=== PATIENT | female | born 1955 | race Caucasian/White ===

== ENCOUNTER 2018-07-24 16:29 | Inpatient (IN) ==
[2018-07-24] MEDS ORDERED: Insulin DETEMIR 100 UNIT/ML per UNIT SQ ONE (21:00)
[2018-07-24] MEDS ORDERED: NON-FORMULARY MEDICATION 1 EACH EACH (Insulin Glargine [Lantus] 30 UNIT) SQ SCH (21:00)
[2018-07-24] MEDS: Cefdinir 300 MG CAPSULE PO SCH (22:00)
[2018-07-24] MEDS: Lactulose Oral Soln 20 GM/30 ML UDC PO SCH (22:01)
[2018-07-24] MEDS: Doxycycline 100 MG CAPSULE PO SCH (22:01)
[2018-07-24] MEDS: *HR* LORazepam 1 MG TABLET PO SCH (22:01)
[2018-07-24] MEDS: Ibuprofen 800 MG TABLET PO PRN (22:09)
[2018-07-24] MEDS: Nystatin POWDER 30 GM BOTTLE TP SCH (22:09)
[2018-07-25 07:28] LABS: BUN/Creatinine Ratio 15 (6-26); Blood Urea Nitrogen 12 mg/dL (8-23); Calcium 8.1 mg/dL (8.6-10.3); Carbon Dioxide 24 mEq/L (23-29); Chloride 105 mEq/L (98-107); Glucose 88 mg/dL (70-105); Osmolality,Calculated 279 (280-300); Potassium 3.4 mEq/L (3.5-5.1); Sodium 135 mEq/L (136-145); eGFR For Non-African Americans > 60 (> 60)
[2018-07-25 07:35] LABS: Basophils # 0.1 K/mcL (0.0-0.2); Basophils % 0.8 %; Eosinophils # 0.5 K/mcL (0.0-0.6); Eosinophils % 4.3 %; Hemoglobin 10.4 g/dL (11.5-15.4); Immature Granulocytes % 0.6 % (0-4); Lymphocytes # 1.8 K/mcL (0.6-4.6); Lymphocytes % 16.6 %; Mean Corpuscular HGB Conc 32.5 g/dL (31.6-35.5); Mean Corpuscular Hemoglobin 31.4 pg (28.0-33.3); Mean Corpuscular Volume 96.7 fL (83.0-100.0); Mean Platelet Volume 9.6 fL (9.4-12.4); Monocytes # 1.2 K/mcL (0.0-1.3); Monocytes % 11.4 %; Platelet Count 184 K/mcL (140-400); Red Blood Count 3.31 M/mcL (3.82-4.97); Red Cell Distribution Width 19.9 % (11.5-14.5); Segmented Neutrophils % 66.3 %
[2018-07-25 07:45] LABS: INR 1.3; Prothrombin Time 14.3 Seconds (9.4-12.1)
[2018-07-25 07:47] LABS: Activated Partial Thrombo Time 29.6 Seconds (26.0-36.0)
[2018-07-25] MEDS: Doxycycline 100 MG CAPSULE PO SCH ×2 (09:37→20:10)
[2018-07-25] MEDS: *HR* LORazepam 1 MG TABLET PO SCH (09:37)
[2018-07-25] MEDS: Cefdinir 300 MG CAPSULE PO SCH ×2 (09:37→20:10)
[2018-07-25] MEDS: *HR* Glimepiride 2 MG TABLET PO SCH (09:38)
[2018-07-25] MEDS: ARIPiprazole 2 MG TABLET PO SCH (09:38)
[2018-07-25] MEDS: Nystatin POWDER 30 GM BOTTLE TP SCH ×2 (09:39→20:11)
[2018-07-25] MEDS: Lactulose Oral Soln 20 GM/30 ML UDC PO SCH (09:40)
[2018-07-25] MEDS: Fluticasone Propionate Nasal 50 MCG/SPRAY BOTTLE NS SCH (11:41)
[2018-07-25] MEDS: Ibuprofen 800 MG TABLET PO PRN ×2 (11:41→18:43)
--- NOTE | 2018-07-25 12:19 | Internal Med History&Physical ---
Date of Encounter: 07/25/18 Time of Encounter: 11:40 Assessment and Plan (1) Pyelonephritis Current visit: No Status: Acute Continue Omnicef through 08/14/2018. Add lactobacillus. (2) Diabetes Current visit: No Status: Chronic Continue Levemir and Amaryl. Accu-Cheks with SSI will be done. Qualifiers: Diabetes mellitus type: type 2 Diabetes mellitus salvage determiner insulin use: without fdc use Diabetes mellitus complication status: with unspecified complications Qualified Code(s): E11.8 - Type 2 diabetes mellitus with unspecified complications (3) Anxiety and depression Current visit: No Status: Chronic She appears overmedicated. Will change Ativan to prn. Continue Abilify and Cymbalta. (4) Cirrhosis Current visit: No Status: Chronic Cryptogenic. Ammonia level was normal at discharge. Attempt decrease lactulose and monitor for encephalopathy. Qualifiers: Hepatic cirrhosis type: unspecified hepatic cirrhosis Ascites presence: without ascites Qualified Code(s): K74.60 - Unspecified cirrhosis of liver (5) Hypertension Current visit: No Status: Chronic Continue Lopressor. Qualifiers: Hypertension type: essential hypertension Qualified Code(s): I10 - Essential (primary) hypertension Internal Medicine - H&P: HPI Chief complaint: UTI, cirrhosis Admitted From: Hospital to Hospital Transfer Plans for Post Hospital Care: Home History of present illness: Ms. Frank is a 63 year old female who was transferred to [facility] swing bed after July 11 stay at [facility] for emphysematous pyelitis and acute metabolic encephalopathy. Urine and blood cultures were positive for Klebsiella pneumonia e. She was seen by infectious disease, nephrology, GI, and urology. She was given IV antibiotics during her acute care stay and has been prescribed ongoing oral antibiotics for swing bed stay. She states she has had kidney stones in the past as well as kidney infections. She denies other disorders of her kidney or bladder. Past Med Surg Social Fam HX - Past Medical History Medical history: asthma, coronary artery disease, diabetes, fibromyalgia, hyperlipidemia, hypertension, kidney stones, other Psychiatric history: anxiety, depression - Past Surgical History Surgical History: appendectomy, cholecystectomy, hip replacement, hysterectomy, other Additional surgical history: LHC, tonsillectomy - Social History Smoking Status: Never smoker Smokeless Tobacco Status: No Alcohol use: none Drug use: none - Family History Mother Living Status: Hx Family Cancer: Yes (pancreatic ca) Internal Medicine - H&P: Meds Albuterol Sulfate [Ventolin Hfa] 1 - 2 puff IH Q4-6H PRN 10/10/16 [History] Fluticasone Propionate Nasal [Flonase] 50 mcg NS DAILY 10/10/16 [History] Ondansetron HCl [Zofran] 4 mg PO TID PRN 10/10/16 [History] ARIPiprazole [Abilify] 1 mg PO DAILY 07/11/18 [History] DULoxetine [Cymbalta] 20 mg PO DAILY 07/11/18 [History] Glimepiride [Amaryl] 4 mg PO QAM 07/11/18 [History] Ibuprofen [Ibu-200] 800 mg PO TID PRN 07/11/18 [History] Insulin Glargine [Lantus] 30 unit SQ HS 07/11/18 [History] Oxybutynin Chloride [Ditropan Xl] 30 mg PO HS 07/11/18 [History] Cefdinir [Omnicef] 300 mg PO BID #42 capsule 07/24/18 [Rx] Doxycycline 100 mg PO BID #12 capsule 07/24/18 [Rx] LORazepam [Ativan] 1 mg PO BID 7 Days #14 tablet 07/24/18 [Rx] Lactulose 20 gm PO TID udc 07/24/18 [Rx] Lidocaine Patch [Lidoderm 5% patch] 1 each TP Q24H adh..patch 07/24/18 [Rx] Metoprolol [Lopressor] 25 mg PO BID tablet 07/24/18 [Rx] Multivit/Ca/Min/Fe/FA [Thera M Plus] 1 tab PO DAILY tablet 07/24/18 [Rx] Nystatin POWDER [Nystop] 1 appl TP BID bottle 07/24/18 [Rx] Allergy/AdvReac Type Severity Reaction Status Date / Time acetaminophen [From Percocet] AdvReac Agitated Verified 07/11/18 19:23 hydrocodone AdvReac Agitated Verified 07/11/18 19:23 hydroxyzine [From Vistaril] AdvReac Agitated Verified 07/11/18 13:35 Oxycodone [From Percocet] AdvReac Agitated Verified 07/11/18 19:23 All Systems PM: A 10-system review of systems was performed and is negative for pertinent findings except as documented above in the HPI. Review of systems: Gen.: Her weight has increased from 89.2 kg on 10/12/2016 to 108.409 kg on admission now Cardiovascular: She has history of hypertension. She reports a heart cath at [facility] approximately 18 months ago without further intervention recommended. She denies heart failure DVT or pulmonary embolus Respiratory: She is a lifelong nonsmoker but states she has a diagnosis of asthma. She does not use home oxygen. GI: She has had cholecystectomy. She has had GI bleed in the past but does not recall details. She states had a colonoscopy approximately 20 years ago and had polypectomy. She has not had repeat colonoscopy. She was diagnosed with liver cirrhosis uncertain etiology approximate 2015. 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 She denies large distribution strokes or seizures. Endocrine: She was diagnosed with DM 2 approximately 2011. She has hyperlipidemia but denies thyroid disease Hematology/oncology: She denies internal malignancies. She had anemia during her recent [facility] stay. She also had transient thrombocytopenia which resolved. Psychiatric: She has anxiety and depression. She is uncertain if she has been told she has bipolar disorder. Musko skeletal: She has had ACL tear in her knee which causes pain on walking. She denies other bone joint or muscle disorders. - Constitutional Vitals: Temp Pulse Resp BP Pulse Ox 98.3 F 79 16 107/64 95 07/25/18 07:37 07/25/18 07:37 07/25/18 07:37 07/25/18 07:37 07/25/18 07:37 Exam: Gen.: She is well-developed obese female sitting in a chair at bedside who appears in no acute distress HEENT: Head is atraumatic and normocephalic. Eyes: EOMI. There is no scleral icterus. Mouth: Mucosa is moist. Neck: There is no thyromegaly or adenopathy noted. Heart: Regular without murmurs gallops or ectopics Lungs: No wheezes or crackles are heard. Abdomen: Soft and nontender. Exam is limited because she is in the seated position. Extremities: Her feet are warm to touch. She has 1-2+ edema in the dorsum the feet and lower anterior shins bilaterally. Dorsalis pedis and posterior tibial pulses are not palpable. Neurologic: Mental status: She is talkative and a fair to good historian. She is slow in her response times but generally answers questions appropriately. She stated her age was 64 but is really 63. Cranial nerves: Smile is symmetric. Forehead wrinkles bilaterally. Tongue protrudes midline. EOMI. Motor: There is no pronator drift. Cerebellar: Finger to nose is intact bilaterally. Skin: Warm and dry Internal Med - H&P Results - Labs CBC & Chem 7: 07/25/18 07:23 07/25/18 06:55 Labs: Short CBC 07/25/18 Range/Units 07:23 WBC 10.5 (4.3-11.1) K/mcL Hgb 10.4 L (11.5-15.4) g/dL Hct 32.0 L (35.3-44.9) % Plt Count 184 (140-400) K/mcL Neutrophils # 7.0 (1.6-8.9) K/mcL BMP 07/25/18 06:55 Sodium 135 L Potassium 3.4 L Chloride 105 Carbon Dioxide 24 BUN 12 Creatinine 0.79 Glucose 88 Calcium 8.1 L
[2018-07-25] MEDS: Multivit/Ca/Min/Fe/FA 1 TAB TABLET PO SCH (13:14)
[2018-07-25] MEDS: Lactobacillus 1 EACH CAP.SPRINK PO SCH (20:10)
[2018-07-25] MEDS: Insulin DETEMIR 100 UNIT/ML X5UNITS SQ SCH (20:18)
[2018-07-25] MEDS: *HR* LORazepam 0.5 MG TABLET PO PRN (22:27)
[2018-07-26] MEDS: Ibuprofen 800 MG TABLET PO PRN ×3 (01:15→23:34)
[2018-07-26] MEDS: Fluticasone Propionate Nasal 50 MCG/SPRAY BOTTLE NS SCH (09:19)
[2018-07-26] MEDS: Lactulose Oral Soln 20 GM/30 ML UDC PO SCH (09:21)
[2018-07-26] MEDS: Nystatin POWDER 30 GM BOTTLE TP SCH ×2 (09:21→20:13)
[2018-07-26] MEDS: Cefdinir 300 MG CAPSULE PO SCH ×2 (09:22→20:11)
[2018-07-26] MEDS: Doxycycline 100 MG CAPSULE PO SCH ×2 (09:23→20:11)
[2018-07-26] MEDS: ARIPiprazole 2 MG TABLET PO SCH (09:23)
[2018-07-26] MEDS: *HR* Glimepiride 2 MG TABLET PO SCH (09:23)
[2018-07-26] MEDS: Lactobacillus 1 EACH CAP.SPRINK PO SCH ×2 (09:23→20:11)
[2018-07-26 11:38] LABS: Folate > 22.3 ng/mL (3.0-16.0); Vitamin B12 > 1500 pg/mL (250-1100)
[2018-07-26] MEDS: Multivit/Ca/Min/Fe/FA 1 TAB TABLET PO SCH (11:58)
--- NOTE | 2018-07-26 14:33 | Internal Med Progress Note ---
Date of Encounter: 07/26/18 Time of Encounter: 14:20 - Assessment and plan (1) Pyelonephritis Current Visit: No Status: Acute Assessment and plan: July 26. Continue Omnicef and lactobacillus through 08/14/2018. (2) Diabetes Current Visit: No Status: Chronic Assessment and plan: July 26. Continue Levemir with Accu-Cheks and SSI. Amaryl was held due to borderline hypoglycemia. Qualifiers: Diabetes mellitus type: type 2 Diabetes mellitus ferry terminal agent insulin use: without ferry terminal agent use Diabetes mellitus complication status: with unspecified complications Qualified Code(s): E11.8 - Type 2 diabetes mellitus with u nspecified complications (3) Anxiety and depression Current Visit: No Status: Chronic Assessment and plan: July 26. She appears less overmedicated but is still confused. Continue Abilify and Cymbalta. (4) Cirrhosis Current Visit: No Status: Chronic Assessment and plan: July 26. Cryptogenic. Monitor ammonia level and clinical status. She reports significant diarrhea so lactulose will be held for now. Qualifiers: Hepatic cirrhosis type: unspecified hepatic cirrhosis Ascites presence: without ascites Qualified Code(s): K74.60 - Unspecified cirrhosis of liver (5) Hypertension Current Visit: No Status: Chronic Assessment and plan: July 26. Continue Lopressor Qualifiers: Hypertension type: essential hypertension Qualified Code(s): I10 - Essential (primary) hypertension (6) Confusion Current Visit: Yes Status: Acute Assessment and plan: July 26. Remain on reduced dose Ativan and monitor. She does not have altered consciousness (7) Hypokalemia Current Visit: No Status: Acute Assessment and plan: July 26. Continue potassium supplementation and recheck labs. - Subjective Interval history: July 26. She has no new complaints. She denies pain or dyspnea. - Constitutional Vitals: Temp Pulse Resp BP Pulse Ox 99.5 F 88 18 129/85 97 07/26/18 06:35 07/26/18 06:35 07/26/18 06:35 07/26/18 06:35 07/26/18 06:35 Exam: She is sitting in a chair at bedside resting comfortably. She is rambling in conversation and does not know her age or how long she has been at [facility]. She cannot identify the previous hospital where she received treatment. She does not know her medical diagnoses. Internal Medicine: Result - Labs CBC & Chem 7: 07/25/18 07:23 07/25/18 06:55 - ABG Interpretation ABG results: PT/INR, D-dimer PT 14.3 Seconds (9.4-12.1) H 07/25/18 07:23 Consult Discharge Plan - Plan Referrals: Sonny Figueroa, POULTRY HUSBANDMAN [Primary Care Provider] - 1 week
[2018-07-26] MEDS: *HR* LORazepam 0.5 MG TABLET PO PRN (16:30)
[2018-07-26] MEDS: Ondansetron ODT 4 MG TAB.RAPDIS PO PRN (18:49)
[2018-07-26] MEDS: Insulin DETEMIR 100 UNIT/ML X5UNITS SQ SCH (20:12)
[2018-07-27 06:47] LABS: Basophils # 0.1 K/mcL (0.0-0.2); Basophils % 0.4 %; Eosinophils # 0.4 K/mcL (0.0-0.6); Eosinophils % 2.6 %; Hematocrit 30.4 % (35.3-44.9); Hemoglobin 9.9 g/dL (11.5-15.4); Immature Granulocytes % 0.6 % (0-4); Lymphocytes # 1.4 K/mcL (0.6-4.6); Lymphocytes % 9.7 %; Mean Corpuscular HGB Conc 32.6 g/dL (31.6-35.5); Mean Corpuscular Hemoglobin 30.9 pg (28.0-33.3); Mean Platelet Volume 9.6 fL (9.4-12.4); Monocytes # 1.3 K/mcL (0.0-1.3); Monocytes % 9.1 %; Neutrophils # 11.2 K/mcL (1.6-8.9); Platelet Count 156 K/mcL (140-400); Red Cell Distribution Width 19.6 % (11.5-14.5); Segmented Neutrophils % 77.6 %
[2018-07-27 07:09] LABS: Alanine Aminotransferase 20 Units/L (7-52); Albumin 2.2 g/dL (3.5-5.7); Albumin/Globulin Ratio 0.6 (1.1-2.2); Alkaline Phosphatase 215 Units/L (34-104); Aspartate Amino Transferase 37 Units/L (13-39); BUN/Creatinine Ratio 14 (6-26); Bilirubin,Total 1.1 mg/dL (0.3-1.0); Blood Urea Nitrogen 13 mg/dL (8-23); Calcium 7.8 mg/dL (8.6-10.3); Carbon Dioxide 24 mEq/L (23-29); Chloride 107 mEq/L (98-107); Globulin 3.5 g/dL (2.4-3.5); Glucose 122 mg/dL (70-105); Osmolality,Calculated 289 (280-300); Potassium 3.4 mEq/L (3.5-5.1); Sodium 139 mEq/L (136-145); Total Protein 5.7 g/dL (6.4-8.9); eGFR For Non-African Americans > 60 (> 60)
[2018-07-27] MEDS: Ibuprofen 800 MG TABLET PO PRN (07:40)
[2018-07-27] MEDS: Cefdinir 300 MG CAPSULE PO SCH ×2 (07:41→20:43)
[2018-07-27] MEDS: *HR* Glimepiride 2 MG TABLET PO SCH (07:41)
[2018-07-27] MEDS: Doxycycline 100 MG CAPSULE PO SCH ×2 (07:42→20:42)
[2018-07-27] MEDS: *HR* LORazepam 0.5 MG TABLET PO PRN ×2 (07:42→23:55)
[2018-07-27] MEDS: Lactobacillus 1 EACH CAP.SPRINK PO SCH ×2 (07:42→20:42)
[2018-07-27] MEDS: Lactulose Oral Soln 20 GM/30 ML UDC PO SCH (07:42)
[2018-07-27] MEDS: ARIPiprazole 2 MG TABLET PO SCH (07:42)
[2018-07-27] MEDS: Fluticasone Propionate Nasal 50 MCG/SPRAY BOTTLE NS SCH (07:43)
[2018-07-27] MEDS: Nystatin POWDER 30 GM BOTTLE TP SCH ×2 (07:46→20:43)
[2018-07-27 10:04] LABS: Estimated Average Glucose 194 mg/dl; Hemoglobin A1C 8.4 %
--- NOTE | 2018-07-27 10:40 | Internal Med Progress Note ---
Date of Encounter: 07/27/18 Time of Encounter: 10:30 - Assessment and plan (1) Pyelonephritis Current Visit: No Status: Acute Assessment and plan: July 26. Continue Omnicef and lactobacillus through 08/14/2018. (2) Diabetes Current Visit: No Status: Chronic Assessment and plan: July 26. Continue Levemir with Accu-Cheks and SSI. Amaryl was held due to borderline hypoglycemia. July 27. Hemoglobin A1c returned slightly elevated at 8.4%. Continue Levemir, Amaryl, and Accu-Cheks with SSI. Qualifiers: Diabetes mellitus type: type 2 Diabetes mellitus detention insulin use: without detention use Diabetes mellitus complication status: with unspecified complications Qualified Code(s): E11.8 - Type 2 diabetes mellitus with unspecified complications (3) Anxiety and depression Current Visit: No Status: Chronic Assessment and plan: July 26. She appears less overmedicated but is still confused. Continue Abilify and Cymbalta. July 27. She does not appear sedated. Continue scheduled Abilify and C ymbalta and prn lorazepam. (4) Cirrhosis Current Visit: No Status: Chronic Assessment and plan: July 26. Cryptogenic. Monitor ammonia level and clinical status. She reports significant diarrhea so lactulose will be held for now. Qualifiers: Hepatic cirrhosis type: unspecified hepatic cirrhosis Ascites presence: without ascites Qualified Code(s): K74.60 - Unspecified cirrhosis of liver (5) Hypertension Current Visit: No Status: Chronic Assessment and plan: July 26. Continue Lopressor July 27. Blood pressure borderline low. Hold Lopressor and monitor. Qualifiers: Hypertension type: essential hypertension Qualified Code(s): I10 - Essential (primary) hypertension (6) Confusion Current Visit: Yes Status: Acute Assessment and plan: July 26. Remain on reduced dose Ativan and monitor. She does not have altered consciousness July 27. Improved. Ammonia level normal at 22. Continue present regimen. (7) Hypokalemia Current Visit: No Status: Acute Assessment and plan: July 26. Continue potassium supplementation and recheck labs. July 27. Potassium unchanged to 3.4. Increase potassium supplement. (8) Edema Current Visit: Yes Status: Acute Assessment and plan: July 27. BN peptide minimally abnormal at 104. Start low-dose Bumex and continue supplemental potassium. Qualifiers: Edema type: unspecified Qualified Code(s): R60.9 - Edema, unspecified - Subjective Interval history: July 26. She has no new complaints. She denies pain or dyspnea. July 27. She has no new complaints. She reports slight pain in her back occasionally. She denies dyspnea or cough. - Constitutional Vitals: Temp Pulse Resp BP Pulse Ox 97.9 F 90 18 88/58 96 07/27/18 07:27 07/27/18 07:27 07/27/18 07:27 07/27/18 07:27 07/27/18 07:27 Exam: She is resting comfortably in bed and appears in no acute distress. She is appropriate in conversation while answering simple questions. Extremities show 1+ edema bilaterally of lower legs. I reviewed her medications and lab results. Internal Medicine: Result - Labs CBC & Chem 7: 07/27/18 06:30 07/27/18 06:30 Labs: Short CBC 07/27/18 Range/Units 06:30 WBC 14.4 H (4.3-11.1) K/mcL Hgb 9.9 L (11.5-15.4) g/dL Hct 30.4 L (35.3-44.9) % Plt Count 156 (140-400) K/mcL Neutrophils # 11.2 H (1.6-8.9) K/mcL BMP 07/27/18 06:30 Sodium 139 Potassium 3.4 L Chloride 107 Carbon Dioxide 24 BUN 13 Creatinine 0.91 Glucose 122 H Calcium 7.8 L Liver Function 07/27/18 Range/Units 06:30 Total Bilirubin 1.1 H (0.3-1.0) mg/dL AST 37 (13-39) Units/L ALT 20 (7-52) Units/L Alkaline Phosphatase 215 H (34-104) Units/L Albumin 2.2 L (3.5-5.7) g/dL - ABG Interpretation ABG results: PT/INR, D-dimer PT 14.3 Seconds (9.4-12.1) H 07/25/18 07:23 Consult Discharge Plan - Plan Referrals: Sonny Figueroa, LAY OUT AND DETAIL DRAFTER [Primary Care Provider] - 1 week
[2018-07-27 11:05] LABS: Ferritin 119 ng/mL (10-120)
[2018-07-27] MEDS: Bumetanide 1 MG TABLET PO SCH (12:30)
[2018-07-27] MEDS: traMADol 50 MG TABLET PO PRN ×2 (12:31→23:55)
[2018-07-27] MEDS: Multivit/Ca/Min/Fe/FA 1 TAB TABLET PO SCH (12:35)
[2018-07-27] MEDS ORDERED: traMADol 50 MG TABLET PO ONE (16:09)
[2018-07-27] MEDS: Insulin DETEMIR 100 UNIT/ML X5UNITS SQ SCH (20:44)
[2018-07-28 03:42] LABS: Basophils # 0.1 K/mcL (0.0-0.2); Basophils % 0.7 %; Eosinophils # 0.5 K/mcL (0.0-0.6); Eosinophils % 4.3 %; Hematocrit 30.8 % (35.3-44.9); Hemoglobin 9.9 g/dL (11.5-15.4); Immature Granulocytes % 0.5 % (0-4); Lymphocytes # 1.9 K/mcL (0.6-4.6); Mean Corpuscular HGB Conc 32.1 g/dL (31.6-35.5); Mean Corpuscular Volume 96.6 fL (83.0-100.0); Mean Platelet Volume 9.6 fL (9.4-12.4); Monocytes # 1.4 K/mcL (0.0-1.3); Monocytes % 11.5 %; Neutrophils # 8.5 K/mcL (1.6-8.9); Platelet Count 160 K/mcL (140-400); Red Blood Count 3.19 M/mcL (3.82-4.97); Red Cell Distribution Width 19.7 % (11.5-14.5)
[2018-07-28 04:02] LABS: BUN/Creatinine Ratio 15 (6-26); Blood Urea Nitrogen 13 mg/dL (8-23); Carbon Dioxide 25 mEq/L (23-29); Chloride 103 mEq/L (98-107); Glucose 172 mg/dL (70-105); Magnesium 1.5 mg/dL (1.6-2.6); Osmolality,Calculated 286 (280-300); Phosphorous 3.3 mg/dL (2.7-4.5); Potassium 3.3 mEq/L (3.5-5.1); Sodium 136 mEq/L (136-145); eGFR For Non-African Americans > 60 (> 60)
[2018-07-28] MEDS: *HR* Glimepiride 2 MG TABLET PO SCH (08:35)
[2018-07-28] MEDS: traMADol 50 MG TABLET PO PRN (08:35)
[2018-07-28] MEDS: Bumetanide 1 MG TABLET PO SCH (08:35)
[2018-07-28] MEDS: Doxycycline 100 MG CAPSULE PO SCH ×2 (08:35→21:50)
[2018-07-28] MEDS: Lactobacillus 1 EACH CAP.SPRINK PO SCH ×2 (08:35→21:50)
[2018-07-28] MEDS: Fluticasone Propionate Nasal 50 MCG/SPRAY BOTTLE NS SCH (08:36)
[2018-07-28] MEDS: Lactulose Oral Soln 20 GM/30 ML UDC PO SCH ×2 (08:36→11:22)
[2018-07-28] MEDS: ARIPiprazole 2 MG TABLET PO SCH (08:36)
[2018-07-28] MEDS: Cefdinir 300 MG CAPSULE PO SCH ×2 (08:36→21:50)
[2018-07-28] MEDS: Nystatin POWDER 30 GM BOTTLE TP SCH ×2 (08:37→21:50)
[2018-07-28] MEDS: Multivit/Ca/Min/Fe/FA 1 TAB TABLET PO SCH (11:53)
[2018-07-28] MEDS ORDERED: traMADol 50 MG TABLET PO ONE (12:00)
[2018-07-28] MEDS ORDERED: traMADol 50 MG TABLET PO SCH (16:00)
[2018-07-28] MEDS: Insulin DETEMIR 100 UNIT/ML X5UNITS SQ SCH (21:50)
[2018-07-28] MEDS: *HR* LORazepam 0.5 MG TABLET PO PRN (21:59)
[2018-07-29] MEDS: traMADol 50 MG TABLET PO PRN ×3 (08:31→21:30)
[2018-07-29] MEDS: ARIPiprazole 2 MG TABLET PO SCH (09:14)
[2018-07-29] MEDS: Doxycycline 100 MG CAPSULE PO SCH ×2 (09:14→21:16)
[2018-07-29] MEDS: Bumetanide 1 MG TABLET PO SCH (09:15)
[2018-07-29] MEDS: Cefdinir 300 MG CAPSULE PO SCH ×2 (09:15→21:16)
[2018-07-29] MEDS: Lactobacillus 1 EACH CAP.SPRINK PO SCH ×2 (09:15→21:16)
[2018-07-29] MEDS: *HR* Glimepiride 2 MG TABLET PO SCH (09:16)
[2018-07-29] MEDS: Lactulose Oral Soln 20 GM/30 ML UDC PO SCH ×2 (09:16→09:19)
[2018-07-29] MEDS: Nystatin POWDER 30 GM BOTTLE TP SCH ×2 (09:19→19:45)
[2018-07-29] MEDS: Fluticasone Propionate Nasal 50 MCG/SPRAY BOTTLE NS SCH (09:19)
[2018-07-29] MEDS: *HR* LORazepam 0.5 MG TABLET PO PRN ×2 (09:47→17:14)
[2018-07-29] MEDS: Multivit/Ca/Min/Fe/FA 1 TAB TABLET PO SCH (11:41)
[2018-07-29] MEDS: Magnesium Oxide 400 MG TABLET PO SCH ×2 (13:26→21:16)
--- NOTE | 2018-07-29 14:48 | Internal Med Progress Note ---
Date of Encounter: 07/29/18 Time of Encounter: 14:40 - Assessment and plan (1) Pyelonephritis Current Visit: No Status: Acute Assessment and plan: July 26. Continue Omnicef and lactobacillus through 08/14/2018. (2) Diabetes Current Visit: No Status: Chronic Assessment and plan: July 26. Continue Levemir with Accu-Cheks and SSI. Amaryl was held due to borderline hypoglycemia. July 27. Hemoglobin A1c returned slightly elevated at 8.4%. Continue Levemir, Amaryl, and Accu-Cheks with SSI. July 29. She has experienced several episodes of hypoglycemia. Amaryl will be discontinued and Levemir dose reduced. Continue Accu-Cheks with SSI. Qualifiers: Diabetes mellitus type: type 2 Diabetes mellitus assistant terminal manager insulin use: without assistant terminal manager use Diabetes mellitus complication status: with unspecified complications Qualified Code(s): E11.8 - Type 2 diabetes mellitus with unspecified complications (3) Anxiety and depression Current Visit: No Status: Chronic Assessment and plan: July 26. She appears less overmedicated but is still confused. Continue Abilify and Cymbalta. July 27. She does not appear sedated. Continue scheduled Abilify and Cymbalta and prn lorazepam. (4) Cirrhosis Current Visit: No Status: Chronic Assessment and plan: July 26. Cryptogenic. Monitor ammonia level and clinical status. She reports significant diarrhea so lactulose will be held for now. October 29. She reports diarrhea has resolved off lactulose. Continue to monitor. Qualifiers: Hepatic cirrhosis type: unspecified hepatic cirrhosis Ascites presence: without ascites Qualified Code(s): K74.60 - Unspecified cirrhosis of liver (5) Hypertension Current Visit: No Status: Chronic Assessment and plan: July 26. Continue Lopressor July 27. Blood pressure borderline low. Hold Lopressor and monitor. Qualifiers: Hypertension type: essential hypertension Qualified Code(s): I10 - Essential (primary) hypertension (6) Confusion Current Visit: Yes Status: Acute Assessment and plan: July 26. Remain on reduced dose Ativan and monitor. She does not have altered consciousness July 27. Improved. Ammonia level normal at 22. Continue present regimen. (7) Hypokalemia Current Visit: No Status: Acute Assessment and plan: July 26. Continue potassium supplementation and recheck labs. July 27. Potassium unchanged to 3.4. Increase potassium supplement. July 29. Recheck labs in a.m. (8) Edema Current Visit: Yes Status: Acute Assessment and plan: July 27. BN peptide minimally abnormal at 104. Start low-dose Bumex and continue supplemental potassium. July 29. Continue Bumex. Recheck labs in a.m. Qualifiers: Edema type: unspecified Qualified Code(s): R60.9 - Edema, unspecified (9) Hypomagnesemia Current Visit: Yes Status: Acute Assessment and plan: July 29. She has been started on magnesium oxide. Recheck labs in a.m. - Subjective Interval history: July 26. She has no new complaints. She denies pain or dyspnea. July 27. She has no new complaints. She reports slight pain in her back occasionally. She denies dyspnea or cough. July 29. She has no new complaints and feels better. - Constitutional Vitals: Temp Pulse Resp BP Pulse Ox 98 F 107 71 107/60 98 07/29/18 06:00 07/29/18 09:46 07/29/18 06:00 07/29/18 09:46 07/29/18 09:12 Exam: She is resting comfortably in bed and appears in no acute distress. She is appropriate in conversation. Her affect is cheerful. I reviewed her medications and lab results. Internal Medicine: Result - Labs CBC & Chem 7: 07/28/18 03:20 07/28/18 03:20 - ABG Interpretation ABG results: PT/INR, D-dimer PT 14.3 Seconds (9.4-12.1) H 07/25/18 07:23 Consult Discharge Plan - Plan Referrals: Sonny Figueroa AIRPORT ELECTRICIAN [Primary Care Provider] - 1 week
[2018-07-29] MEDS ORDERED: Insulin DETEMIR 100 UNIT/ML X5UNITS SQ SCH (21:00)
[2018-07-30 06:28] LABS: Basophils # 0.1 K/mcL (0.0-0.2); Basophils % 0.9 %; Eosinophils # 0.7 K/mcL (0.0-0.6); Eosinophils % 7.3 %; Hematocrit 32.2 % (35.3-44.9); Hemoglobin 10.3 g/dL (11.5-15.4); Immature Granulocytes % 0.5 % (0-4); Lymphocytes % 21.6 %; Mean Corpuscular Hemoglobin 30.7 pg (28.0-33.3); Mean Corpuscular Volume 95.8 fL (83.0-100.0); Mean Platelet Volume 9.1 fL (9.4-12.4); Monocytes # 1.4 K/mcL (0.0-1.3); Monocytes % 14.7 %; Neutrophils # 5.1 K/mcL (1.6-8.9); Platelet Count 172 K/mcL (140-400); Red Blood Count 3.36 M/mcL (3.82-4.97); Red Cell Distribution Width 18.6 % (11.5-14.5)
[2018-07-30 06:46] LABS: BUN/Creatinine Ratio 11 (6-26); Blood Urea Nitrogen 9 mg/dL (8-23); Calcium 8.3 mg/dL (8.6-10.3); Carbon Dioxide 31 mEq/L (23-29); Chloride 100 mEq/L (98-107); Glucose 51 mg/dL (70-105); Magnesium 1.5 mg/dL (1.6-2.6); Osmolality,Calculated 280 (280-300); Potassium 3.9 mEq/L (3.5-5.1); Sodium 137 mEq/L (136-145); eGFR For Non-African Americans > 60 (> 60)
[2018-07-30] MEDS: traMADol 50 MG TABLET PO PRN ×3 (07:35→16:30)
[2018-07-30] MEDS: ARIPiprazole 2 MG TABLET PO SCH (08:00)
[2018-07-30] MEDS: Doxycycline 100 MG CAPSULE PO SCH ×2 (08:00→20:18)
[2018-07-30] MEDS: Lactobacillus 1 EACH CAP.SPRINK PO SCH ×2 (08:01→20:18)
[2018-07-30] MEDS: Magnesium Oxide 400 MG TABLET PO SCH ×2 (08:01→20:18)
[2018-07-30] MEDS: Bumetanide 1 MG TABLET PO SCH (08:01)
[2018-07-30] MEDS: Cefdinir 300 MG CAPSULE PO SCH ×2 (08:01→20:18)
[2018-07-30] MEDS: Nystatin POWDER 30 GM BOTTLE TP SCH ×2 (08:02→20:19)
[2018-07-30] MEDS: Fluticasone Propionate Nasal 50 MCG/SPRAY BOTTLE NS SCH (08:03)
[2018-07-30] MEDS: *HR* LORazepam 0.5 MG TABLET PO PRN ×2 (09:06→20:18)
[2018-07-30] MEDS: Multivit/Ca/Min/Fe/FA 1 TAB TABLET PO SCH (12:04)
[2018-07-30] MEDS: Ondansetron ODT 4 MG TAB.RAPDIS PO PRN (12:17)
[2018-07-30] MEDS: Insulin DETEMIR 100 UNIT/ML X5UNITS SQ SCH (20:19)
[2018-07-31] MEDS: traMADol 50 MG TABLET PO PRN ×4 (04:34→18:21)
[2018-07-31] MEDS: Fluticasone Propionate Nasal 50 MCG/SPRAY BOTTLE NS SCH (08:07)
[2018-07-31] MEDS: Bumetanide 1 MG TABLET PO SCH (08:08)
[2018-07-31] MEDS: Lactobacillus 1 EACH CAP.SPRINK PO SCH ×2 (08:08→20:44)
[2018-07-31] MEDS: ARIPiprazole 2 MG TABLET PO SCH (08:12)
[2018-07-31] MEDS: Magnesium Oxide 400 MG TABLET PO SCH ×2 (08:12→20:45)
[2018-07-31] MEDS: Doxycycline 100 MG CAPSULE PO SCH ×2 (08:12→20:44)
[2018-07-31] MEDS: Cefdinir 300 MG CAPSULE PO SCH ×2 (08:12→20:44)
[2018-07-31] MEDS: *HR* LORazepam 0.5 MG TABLET PO PRN ×2 (08:13→18:21)
[2018-07-31] MEDS: Nystatin POWDER 30 GM BOTTLE TP SCH ×2 (08:22→20:45)
[2018-07-31] MEDS: Multivit/Ca/Min/Fe/FA 1 TAB TABLET PO SCH (11:11)
[2018-07-31] MEDS: Insulin DETEMIR 100 UNIT/ML X5UNITS SQ SCH (21:16)
[2018-08-01] MEDS: traMADol 50 MG TABLET PO PRN ×3 (05:59→19:36)
[2018-08-01] MEDS: Bumetanide 1 MG TABLET PO SCH (08:29)
[2018-08-01] MEDS: Lactobacillus 1 EACH CAP.SPRINK PO SCH ×2 (08:30→19:36)
[2018-08-01] MEDS: ARIPiprazole 2 MG TABLET PO SCH (08:30)
[2018-08-01] MEDS: Magnesium Oxide 400 MG TABLET PO SCH ×2 (08:30→19:36)
[2018-08-01] MEDS: Doxycycline 100 MG CAPSULE PO SCH ×2 (08:30→19:36)
[2018-08-01] MEDS: Cefdinir 300 MG CAPSULE PO SCH ×2 (08:31→19:36)
[2018-08-01] MEDS: Fluticasone Propionate Nasal 50 MCG/SPRAY BOTTLE NS SCH (10:06)
[2018-08-01] MEDS: Nystatin POWDER 30 GM BOTTLE TP SCH ×2 (11:25→21:05)
[2018-08-01] MEDS: Multivit/Ca/Min/Fe/FA 1 TAB TABLET PO SCH (11:37)
--- NOTE | 2018-08-01 12:11 | Internal Med Progress Note ---
Date of Encounter: 08/01/18 Time of Encounter: 12:05 - Assessment and plan (1) Pyelonephritis Current Visit: No Status: Acute Assessment and plan: July 26. Continue Omnicef and lactobacillus through 08/14/2018. August 01. Continue present regimen. Anticipate discharge home tomorrow and complete oral antibiotic course as outpatient. (2) Diabetes Current Visit: No Status: Chronic Assessment and plan: July 26. Continue Levemir with Accu-Cheks and SSI. Amaryl was held due to borderline hypoglycemia. July 27. Hemoglobin A1c returned slightly elevated at 8.4%. Continue Levemir, Amaryl, and Accu-Cheks with SSI. July 29. She has experienced several episodes of hypoglycemia. Amaryl will be discontinued and Levemir dose reduced. Continue Accu-Cheks with SSI. August 01. Symptomatic hypoglycemia resolved with reduced dose Levemir. Qualifiers: Diabetes mellitus type: type 2 Diabetes mellitus watermelon inspector insulin use: without long-term use Diabetes mellitus complication status: with unspecified complications Qualified Code(s): E11.8 - Type 2 diabetes mellitus with unspecified complications (3) Anxiety and depression Current Visit: No Status: Chronic Assessment and plan: July 26. She appears less overmedicated but is still confused. Continue Abilify and Cymbalta. July 27. She does not appear sedated. Continue scheduled Abilify and Cymbalta and prn lorazepam. (4) Cirrhosis Current Visit: No Status: Chronic Assessment and plan: July 26. Cryptogenic. Monitor ammonia level and clinical status. She reports significant diarrhea so lactulose will be held for now. October 29. She reports diarrhea has resolved off lactulose. Continue to monitor. Qualifiers: Hepatic cirrhosis type: unspecified hepatic cirrhosis Ascites presence: without ascites Qualified Code(s): K74.60 - Unspecified cirrhosis of liver (5) Hypertension Current Visit: No Status: Chronic Assessment and plan: July 26. Continue Lopressor July 27. Blood pressure borderline low. Hold Lopressor and monitor. August 01. Blood pressure satisfactory off Lopressor. Qualifiers: Hypertension type: essential hypertension Qualified Code(s): I10 - Essential (primary) hypertension (6) Confusion Current Visit: Yes Status: Acute Assessment and plan: July 26. Remain on reduced dose Ativan and monitor. She does not have altered consciousness July 27. Improved. Ammonia level normal at 22. Continue present regimen. (7) Hypokalemia Current Visit: No Status: Acute Assessment and plan: July 26. Continue potassium supplementation and recheck labs. July 27. Potassium unchanged to 3.4. Increase potassium supplement. July 29. Recheck labs in a.m. August 01. Potassium normalized to 3.9 on July 30. Recheck in a.m. (8) Edema Current Visit: Yes Status: Acute Assessment and plan: July 27. BN peptide minimally abnormal at 104. Start low-dose Bumex and continue supplemental potassium. July 29. Continue Bumex. Recheck labs in a.m. Qualifiers: Edema type: unspecified Qualified Code(s): R60.9 - Edema, unspecified (9) Hypomagnesemia Current Visit: Yes Status: Acute Assessment and plan: July 29. She has been started on magnesium oxide. Recheck labs in a.m. August 01. Recheck labs in a.m. - Subjective Interval history: July 26. She has no new complaints. She denies pain or dyspnea. July 27. She has no new complaints. She reports slight pain in her back occasionally. She denies dyspnea or cough. July 29. She has no new complaints and feels better. August 01. She has no new complaints. - Constitutional Vitals: Temp Pulse Resp BP Pulse Ox 98.0 F 106 18 124/64 93 08/01/18 06:47 08/01/18 06:47 08/01/18 06:47 08/01/18 06:47 08/01/18 06:47 Exam: She is sitting in a chair at bedside resting comfortably. Her affect is bright and cheerful. I reviewed her medications and lab results. Internal Medicine: Result - Labs CBC & Chem 7: 07/30/18 06:20 07/30/18 06:20 - ABG Interpretation ABG results: PT/INR, D-dimer PT 14.3 Seconds (9.4-12.1) H 07/25/18 07:23 Consult Discharge Plan - Plan Referrals: Sonny Figueroa, SENIOR AUDITOR [Primary Care Provider] - 1 week
[2018-08-01] MEDS: Ondansetron ODT 4 MG TAB.RAPDIS PO PRN (19:36)
[2018-08-01] MEDS: *HR* LORazepam 0.5 MG TABLET PO PRN (19:37)
[2018-08-01] MEDS: Insulin DETEMIR 100 UNIT/ML X5UNITS SQ SCH (20:04)
[2018-08-02 07:19] VITALS: BP 109/64
[2018-08-02 08:18] LABS: Basophils # 0.1 K/mcL (0.0-0.2); Basophils % 0.7 %; Eosinophils # 0.8 K/mcL (0.0-0.6); Eosinophils % 5.9 %; Hematocrit 33.6 % (35.3-44.9); Hemoglobin 11.1 g/dL (11.5-15.4); Immature Granulocytes % 0.7 % (0-4); Lymphocytes # 2.4 K/mcL (0.6-4.6); Lymphocytes % 17.7 %; Mean Corpuscular Hemoglobin 31.4 pg (28.0-33.3); Mean Corpuscular Volume 94.9 fL (83.0-100.0); Mean Platelet Volume 10.2 fL (9.4-12.4); Monocytes # 1.6 K/mcL (0.0-1.3); Monocytes % 11.9 %; Platelet Count 120 K/mcL (140-400); Red Blood Count 3.54 M/mcL (3.82-4.97); Red Cell Distribution Width 17.9 % (11.5-14.5); Segmented Neutrophils % 63.1 %
[2018-08-02] MEDS: *HR* LORazepam 0.5 MG TABLET PO PRN (08:24)
[2018-08-02] MEDS: Bumetanide 1 MG TABLET PO SCH (08:24)
[2018-08-02] MEDS: Magnesium Oxide 400 MG TABLET PO SCH (08:24)
[2018-08-02] MEDS: ARIPiprazole 2 MG TABLET PO SCH (08:24)
[2018-08-02] MEDS: Doxycycline 100 MG CAPSULE PO SCH (08:24)
[2018-08-02] MEDS: traMADol 50 MG TABLET PO PRN ×2 (08:24→12:55)
[2018-08-02] MEDS: Lactobacillus 1 EACH CAP.SPRINK PO SCH (08:24)
[2018-08-02] MEDS: Cefdinir 300 MG CAPSULE PO SCH (08:24)
[2018-08-02] MEDS: Fluticasone Propionate Nasal 50 MCG/SPRAY BOTTLE NS SCH (08:26)
[2018-08-02] MEDS: Nystatin POWDER 30 GM BOTTLE TP SCH (08:26)
[2018-08-02 08:30] LABS: Neutrophils # 8.5 K/mcL (1.6-8.9)
[2018-08-02 09:36] LABS: BUN/Creatinine Ratio 11 (6-26); Blood Urea Nitrogen 12 mg/dL (8-23); Calcium 8.5 mg/dL (8.6-10.3); Carbon Dioxide 36 mEq/L (23-29); Chloride 92 mEq/L (98-107); Glucose 94 mg/dL (70-105); Magnesium 1.8 mg/dL (1.6-2.6); Osmolality,Calculated 278 (280-300); Potassium 3.9 mEq/L (3.5-5.1); Sodium 134 mEq/L (136-145); eGFR For Non-African Americans 53 (> 60)
[2018-08-02] MEDS: Multivit/Ca/Min/Fe/FA 1 TAB TABLET PO SCH (12:54)
--- NOTE | 2018-08-02 14:42 | Discharge Summary ---
Date of Encounter: 08/02/18 Time of Encounter: 14:25 - Discharge Diagnosis (1) Pyelonephritis Priority: Primary Status: Acute (2) Diabetes Priority: Secondary Status: Chronic Qualifiers: Diabetes mellitus type: type 2 Diabetes mellitus intermediate frame tender insulin use: without half-way use Diabetes mellitus complication status: with unspecified complications Qualified Code(s): E11.8 - Type 2 diabetes mellitus with unspecified complications (3) Anxiety and depression Priority: Secondary Status: Chronic (4) Cirrhosis Priority: Secondary Status: Chronic Qualifiers: Hepatic cirrhosis type: unspecified hepatic cirrhosis Ascites presence: without ascites Qualified Code(s): K74.60 - Unspecified cirrhosis of liver (5) Hypertension Priority: Secondary Status: Chronic Qualifiers: Hypertension type: essential hypertension Qualified Code(s): I10 - Essential (primary) hypertension (6) Confusion Priority: Secondary Status: Resolved (7) Hypokalemia Priority: Secondary Status: Acute (8) Edema Priority: Secondary Status: Acute Qualifiers: Edema type: unspecified Qualified Code(s): R60.9 - Edema, unspecified (9) Hypomagnesemia Priority: Secondary Status: Acute Hospital course: Ms. 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 Urine and blood cultures were positive for Klebsiella pneumoniae. She was seen by infectious disease, nephrology, GI, and urology. She was given IV antibiotics during her acute care stay and has been prescribed ongoing oral antibiotics for swing bed stay. Initial orders were written by the emergency room physician. I saw her on July 25 and performed the swing bed history and physical. She continued on Omnicef and doxycycline through her swing bed stay. She will continue Omnicef with lactobacillus through 08/14/2018 as per recommendation of [facility] physicians during her acute care stay. She remained afebrile during her swing bed stay. Hemoglobin A1 C returned slightly elevated at 8.4%. Amaryl was discontinued because of hypoglycemia. Levemir dose was reduced because of ongoing hypoglycemia. Her dose of Lantus will be decreased to 10 units daily at discharge. Scheduled lorazepam was discontinued because of oversedation. She continued on Abilify and Cymbalta without sedation. Lactulose was discontinued because of severe diarrhea. She had no evidence of hepatic encephalopathy and will remain off this at discharge. Lopressor was held because of borderline hypertension. Her pressure normalized and she will remain off this at discharge. Bumex was started because of edema. Potassium dose was increased and her level was normal at 3.9 on day of discharge. She will continue supplemental potassium at a dose of 20 mEq 4 times a day at home. She was given a one-week supply on prescription. Her PCP can monitor labs and renew the prescription as needed. Hypomagnesemia corrected with supplemental magnesium oxide. This will be continued at discharge. She was given a one-week supply. Her PCP can monitor labs and renew the prescription as necessary. She had physical therapy and occupational therapy evaluations with ongoing intervention during her swing bed stay. She made satisfactory progress and on August 02 was stable for discharge home. She will follow with her PCP Sonny Figueroa CNP within 1 week. - Time Spent with Patient Total time spent providing and/or coordinating discharge services: - Discharge Medications Prescriptions: Bumetanide [Bumex] 0.5 mg PO DAILY #15 tablet Cefdinir [Omnicef] 300 mg PO BID #24 capsule Lactobacillus [Culturelle] 1 each PO BID #24 cap.sprink Magnesium Oxide [Mag-Ox] 400 mg PO BID #14 tablet Metoprolol XL (24 HR) Succ [Toprol XL] 12.5 mg PO DAILY #15 tab.er.24h Oxybutynin Chloride [Ditropan Xl] 10 mg PO DAILY #30 tab.er.24 Potassium Chloride 20 meq PO Q6H #56 tab.er.prt Tramadol HCl [Ultram] 50 mg PO QID PRN 3 Days #12 tab PRN Reason: Pain Home Medications: Albuterol Sulfate [Ventolin Hfa] 1 - 2 puff IH Q4-6H PRN 10/10/16 [History] Fluticasone Propionate Nasal [Flonase] 50 mcg NS DAILY 10/10/16 [History] Ondansetron HCl [Zofran] 4 mg PO TID PRN 10/10/16 [History] ARIPiprazole [Abilify] 1 mg PO DAILY 07/11/18 [History] DULoxetine [Cymbalta] 20 mg PO DAILY 07/11/18 [History] Lidocaine Patch [Lidoderm 5% patch] 1 each TP Q24H adh..patch 07/24/18 [Rx] Multivit/Ca/Min/Fe/FA [Thera M Plus] 1 tab PO DAILY tablet 07/24/18 [Rx] Nystatin POWDER [Nystop] 1 appl TP BID bottle 07/24/18 [Rx] Bumetanide [Bumex] 0.5 mg PO DAILY #15 tablet 08/02/18 [Rx] Cefdinir [Omnicef] 300 mg PO BID #24 capsule 08/02/18 [Rx] Insulin Glargine [Lantus] 10 unit SQ HS #0 08/02/18 [Rx] Lactobacillus [Culturelle] 1 each PO BID #24 cap.sprink 08/02/18 [Rx] Magnesium Oxide [Mag-Ox] 400 mg PO BID #14 tablet 08/02/18 [Rx] Metoprolol XL (24 HR) Succ [Toprol XL] 12.5 mg PO DAILY #15 tab.er.24h 08/02/18 [Rx] Oxybutynin Chloride [Ditropan Xl] 10 mg PO DAILY #30 tab.er.24 08/02/18 [Rx] Potassium Chloride 20 meq PO Q6H #56 tab.er.prt 08/02/18 [Rx] Tramadol HCl [Ultram] 50 mg PO QID PRN 3 Days #12 tab 08/02/18 [Rx] Allergies/Adverse Reactions: Allergy/AdvReac Type Severity Reaction Status Date / Time acetaminophen [From Percocet] AdvReac Agitated Verified 07/11/18 19:23 hydrocodone AdvReac Agitated Verified 07/11/18 19:23 hydroxyzine [From Vistaril] AdvReac Agitated Verified 07/11/18 13:35 Oxycodone [From Percocet] AdvReac Agitated Verified 07/11/18 19:23 Date of admission: 07/24/18 20:03 Primary care physician: Sonny Figueroa CNP Consults: 07/24/18 18:16 Consult to Occupational Therapy [CONS] Routine Comment: eval, develop, implement POC Reason for Consult: eval, develop, implement POC Does patient have active BEDREST order?: No Is patient medically & hemodynamically stable?: Yes Consult to Physical Therapy [CONS] Routine Comment: eval, develop, implement POC Reason for Consult: eval, develop, implement POC Does patient have active BEDREST order?: No Is patient medically & hemodynamically stable?: Yes Consult to Computational Linguist [CONS] Routine Reason for SW Consult: may need HH upon discharge - Constitutional Vitals: Temp Pulse Resp BP Pulse Ox 98.4 F 106 18 109/64 94 08/02/18 07:13 08/02/18 07:13 08/02/18 07:13 08/02/18 07:13 08/02/18 07:13 - Patient Status Disposition: Home Health Service Functional capacity at discharge: uses cane/walker - Discharge Instructions Follow Up With: Sonny Figueroa [facility] [employer] [facility] [Primary Care Provider] - 1 week - Diet and Activity Activity: as per physical therapy Diet: diabetic diet
--- NOTE | 2018-08-02 14:55 | Physician Discharge Referral ---
Home Health/Hosp Referral Info Transfer to: Home Health Attending Provider: Roger Provider in Charge Post Discharge: PCP Diane) - Diagnosis (1) Pyelonephritis Priority: Primary Status: Acute (2) Diabetes Priority: Secondary Status: Chronic (3) Anxiety and depression Priority: Secondary Status: Chronic (4) Cirrhosis Priority: Secondary Status: Chronic (5) Hypertension Priority: Secondary Status: Chronic (6) Confusion Priority: Secondary Status: Resolved (7) Hypokalemia Priority: Secondary Status: Acute (8) Edema Priority: Secondary Status: Acute (9) Hypomagnesemia Priority: Secondary Status: Acute - Respiratory Orders Smoking Cessation: Smoking cessation has been advised. For more information, call the [place] Tobacco Quit Line at 3-088-FVNG-NOW. - Diet/Nutrition Diet/Nutrition Orders: No Concentrated Sweets - Activity Activity Orders: Walker - Services Needed Following services are medically necessary services: Nursing, Home Health Aide, Physical Therapy, Occupational Therapy - Transfer Medications Prescriptions: Bumetanide [Bumex] 0.5 mg PO DAILY #15 tablet Cefdinir [Omnicef] 300 mg PO BID #24 capsule Lactobacillus [Culturelle] 1 each PO BID #24 cap.sprink Magnesium Oxide [Mag-Ox] 400 mg PO BID #14 tablet Metoprolol XL (24 HR) Succ [Toprol XL] 12.5 mg PO DAILY #15 tab.er.24h Oxybutynin Chloride [Ditropan Xl] 10 mg PO DAILY #30 tab.er.24 Potassium Chloride 20 meq PO Q6H #56 tab.er.prt Tramadol HCl [Ultram] 50 mg PO QID PRN 3 Days #12 tab PRN Reason: Pain Home Medications: Albuterol Sulfate [Ventolin Hfa] 1 - 2 puff IH Q4-6H PRN 10/10/16 [History] Fluticasone Propionate Nasal [Flonase] 50 mcg NS DAILY 10/10/16 [History] Ondansetron HCl [Zofran] 4 mg PO TID PRN 10/10/16 [History] ARIPiprazole [Abilify] 1 mg PO DAILY 07/11/18 [History] DULoxetine [Cymbalta] 20 mg PO DAILY 07/11/18 [History] Lidocaine Patch [Lidoderm 5% patch] 1 each TP Q24H adh..patch 07/24/18 [Rx] Multivit/Ca/Min/Fe/FA [Thera M Plus] 1 tab PO DAILY tablet 07/24/18 [Rx] Nystatin POWDER [Nystop] 1 appl TP BID bottle 07/24/18 [Rx] Bumetanide [Bumex] 0.5 mg PO DAILY #15 tablet 08/02/18 [Rx] Cefdinir [Omnicef] 300 mg PO BID #24 capsule 08/02/18 [Rx] Insulin Glargine [Lantus] 10 unit SQ HS #0 08/02/18 [Rx] Lactobacillus [Culturelle] 1 each PO BID #24 cap.sprink 08/02/18 [Rx] Magnesium Oxide [Mag-Ox] 400 mg PO BID #14 tablet 08/02/18 [Rx] Metoprolol XL (24 HR) Succ [Toprol XL] 12.5 mg PO DAILY #15 tab.er.24h 08/02/18 [Rx] Oxybutynin Chloride [Ditropan Xl] 10 mg PO DAILY #30 tab.er.24 08/02/18 [Rx] Potassium Chloride 20 meq PO Q6H #56 tab.er.prt 08/02/18 [Rx] Tramadol HCl [Ultram] 50 mg PO QID PRN 3 Days #12 tab 08/02/18 [Rx] Allergies/Adverse Reactions: Allergy/AdvReac Type Severity Reaction Status Date / Time acetaminophen [From Percocet] AdvReac Agitated Verified 07/11/18 19:23 hydrocodone AdvReac Agitated Verified 07/11/18 19:23 hydroxyzine [From Vistaril] AdvReac Agitated Verified 07/11/18 13:35 Oxycodone [From Percocet] AdvReac Agitated Verified 07/11/18 19:23 Certification: Further, I certify that my clinical findings support that this patient is homebound (i.e. absences from home require considerable and taxing effort and are for medical reasons or alevism services or infrequently or short duration when for other reasons) because: Homebound Reason: Leaving home requires considerable and taxing effort due to condition (Morbid obesity, low back pain, polynephritis) Attestation: My signature below is to certify that this patient is under my care and that I, or nurse practitioner, or a physician's kindergarten teacher assistant working with me, has a [id number] encounter with this patient.
== END 2018-08-02 16:10 | disposition home health service (06) | DRG 689 ==
LOC: INPPIK 20:03
PROVIDERS: ADMIT Internal Medicine; ATTEND Internal Medicine

== ENCOUNTER 2018-08-12 21:22 | Inpatient (IN) ==
[2018-08-12] MEDS ORDERED: Ondansetron ODT 4 MG TAB.RAPDIS PO PRN (22:20)
[2018-08-13] MEDS: Potassium Chloride Elixir 20 MEQ/15 ML UDC PO SCH ×4 (00:03→15:39)
[2018-08-13] MEDS: traMADol 50 MG TABLET PO PRN ×4 (00:03→19:51)
[2018-08-13 06:06] LABS: Basophils # 0.1 K/mcL (0.0-0.2); Eosinophils # 0.3 K/mcL (0.0-0.6); Eosinophils % 3.7 %; Hematocrit 37.9 % (35.3-44.9); Hemoglobin 12.2 g/dL (11.5-15.4); Immature Granulocytes % 0.4 % (0-4); Lymphocytes # 1.8 K/mcL (0.6-4.6); Lymphocytes % 22.6 %; Mean Corpuscular HGB Conc 32.2 g/dL (31.6-35.5); Mean Corpuscular Hemoglobin 30.8 pg (28.0-33.3); Mean Corpuscular Volume 95.7 fL (83.0-100.0); Mean Platelet Volume 8.8 fL (9.4-12.4); Neutrophils # 4.8 K/mcL (1.6-8.9); Platelet Count 164 K/mcL (140-400); Red Blood Count 3.96 M/mcL (3.82-4.97); Red Cell Distribution Width 17.2 % (11.5-14.5); Segmented Neutrophils % 60.3 %
[2018-08-13 06:23] LABS: BUN/Creatinine Ratio 15 (6-26); Blood Urea Nitrogen 11 mg/dL (8-23); Carbon Dioxide 27 mEq/L (23-29); Chloride 100 mEq/L (98-107); Glucose 130 mg/dL (70-105); Osmolality,Calculated 281 (280-300); Potassium 3.1 mEq/L (3.5-5.1); Sodium 135 mEq/L (136-145); eGFR For Non-African Americans > 60 (> 60)
[2018-08-13] MEDS ORDERED: *HR* LORazepam 1 MG TABLET PO SCH (09:00)
[2018-08-13] MEDS ORDERED: Bumetanide 1 MG TABLET PO SCH ×2 (09:00→12:23)
[2018-08-13] MEDS: levoFLOXacin 500 MG TABLET PO SCH (09:38)
[2018-08-13] MEDS: Multivit/Ca/Min/Fe/FA 1 TAB TABLET PO SCH (09:38)
[2018-08-13] MEDS: Metoprolol XL (24 HR) Succ 25 MG TAB.ER.24H PO SCH (09:39)
[2018-08-13] MEDS: Fluconazole 100 MG TABLET PO SCH (09:39)
[2018-08-13] MEDS: ARIPiprazole 2 MG TABLET PO SCH (09:39)
--- NOTE | 2018-08-13 11:59 | Internal Med History&Physical ---
Date of Encounter: 08/13/18 Time of Encounter: 11:25 Assessment and Plan (1) UTI (urinary tract infection) Current visit: No Status: Acute Continue Levaquin through August 22. Add lactobacillus. Qualifiers: Urinary tract infection type: site unspecified Hematuria presence: with hematuria Qualified Code(s): N39.0 - Urinary tract infection, site not specified; R31.9 - Hematuria, unspecified (2) Hypokalemia Current visit: No Status: Acute Continue supplemental potassium, decrease Bumex to every other day, and monitor labs. (3) Anxiety and depression Current visit: No Status: Chronic Continue Cymbalta but increase dose to assist in pain control. (4) Hypertension Current visit: No Status: Chronic Continue Toprol-XL. Qualifiers: Hypertension type: essential hypertension Qualified Code(s): I10 - Essential (primary) hypertension (5) Cirrhosis Current visit: No Status: Chronic Check ammonia level and monitor LFTs. Qualifiers: Hepatic cirrhosis type: unspecified hepatic cirrhosis Ascites presence: without ascites Qualified Code(s): K74.60 - Unspecified cirrhosis of liver (6) Hypomagnesemia Current visit: No Status: Acute Check magnesium level in a.m. (7) Compression fracture of L1 lumbar vertebra Current visit: No Status: Acute Order scheduled Tylenol and BenGay with Lidoderm patch. She was recommended to wear TLSO to relieve pain. Qualifiers: Encounter type: initial encounter Fracture type: closed Qualified Code(s): S32.010A - Wedge compression fracture of first lumbar vertebra, initial encounter for closed fracture (8) Lethargy Current visit: Yes Status: Acute Reduce Ativan to 0.5 mg twice a day from present dose of 1 mg twice a day. (9) Diabetes Current visit: No Status: Chronic Hemoglobin A1c was 8.4% on 07/26/2018. Continue Lantus/Levemir and do Accu- Cheks with SSI. Qualifiers: Diabetes mellitus type: type 2 Diabetes mellitus intermediate insulin use: without doughnut dough mixer use Diabetes mellitus complication status: with unspecified complications Qualified Code(s): E11.8 - Type 2 diabetes mellitus with unspecified complications Internal Medicine - H&P: HPI Chief complaint: Urinary infection Admitted From: Hospital to Hospital Transfer Plans for Post Hospital Care: Home History of present illness: Ms. Frank is a 63 year old female who was transferred to [facility] swing bed after [facility] hospitalization August 06 for UTI. She had been hospitalized at [facility] July 11- for emphysematous pyelitis with acute metabolic encephalopathy. She transferred to [facility] swing bed for a July 24-August 02 stay. Following discharge home August 02 she became more confused and weak. She returned to [facility] and was found to have urosepsis with Pseudomonas cultured from urine. She was seen by orthopedist for L1 compression fracture and was recommended to have a TLSO brace. She was discharged to [facility] swing bed for ongoing care needs. During her previous [facility] stay she had a right ureteral stent placed. She has had numerous UTIs in the past with kidney stones. She denies other kidney or bladder disorders. Past Med Surg Social Fam HX - Past Medical History Medical history: asthma, coronary artery disease, diabetes, fibromyalgia, hyperlipidemia, hypertension, kidney stones, other Psychiatric history: anxiety, depression - Past Surgical History Surgical History: appendectomy, cholecystectomy, hip replacement, hysterectomy, other Additional surgical history: [facility] - Social History Smoking Status: Never smoker Smokeless Tobacco Status: No Alcohol use: none Drug use: none - Family History Mother Living Status: Hx Family Cancer: Yes (Pancreatic) Father Living Status: Hx Family Endocrine Disorder: Yes (DM) Internal Medicine - H&P: Meds Albuterol Sulfate [Ventolin Hfa] 1 - 2 puff IH Q4-6H PRN 10/10/16 [History] Fluticasone Propionate Nasal [Flonase] 50 mcg NS DAILY 10/10/16 [History] Ondansetron HCl [Zofran] 4 mg PO TID PRN 10/10/16 [History] ARIPiprazole [Abilify] 1 mg PO DAILY 07/11/18 [History] DULoxetine [Cymbalta] 20 mg PO DAILY 07/11/18 [History] Multivit/Ca/Min/Fe/FA [Thera M Plus] 1 tab PO DAILY tablet 07/24/18 [Rx] Nystatin POWDER [Nystop] 1 appl TP BID bottle 07/24/18 [Rx] Bumetanide [Bumex] 0.5 mg PO DAILY #15 tablet 08/02/18 [Rx] Insulin Glargine [Lantus] 10 unit SQ HS #0 08/02/18 [Rx] Metoprolol XL (24 HR) Succ [Toprol Xl] 12.5 mg PO DAILY #15 tab.er.24h 08/02/18 [Rx] Potassium Chloride 20 meq PO Q6H #56 tab.er.prt 08/02/18 [Rx] LORazepam [Ativan] 1 mg PO BID 08/06/18 [History] Oxybutynin Chloride [Ditropan Xl] 10 mg PO DAILY 08/06/18 [History] Fluconazole [Diflucan] 200 mg PO DAILY 10 Days #10 tablet 08/11/18 [Rx] Lidocaine Patch [Lidoderm 5% patch] 1 each TP DAILY 7 Days #7 adh..patch 08/11/18 [Rx] Tramadol HCl [Ultram] 50 mg PO QID PRN 5 Days #20 tab 08/11/18 [Rx] levoFLOXacin [Levaquin] 500 mg PO DAILY 10 Days #10 tablet 08/11/18 [Rx] Allergy/AdvReac Type Severity Reaction Status Date / Time hydrocodone AdvReac Agitated Verified 08/06/18 12:01 hydroxyzine [From Vistaril] AdvReac Agitated Verified 08/06/18 12:01 Oxycodone [From Percocet] AdvReac Agitated Verified 08/06/18 12:01 All Systems PM: A 10-system review of systems was performed and is negative for pertinent findings except as documented above in the HPI. Review of systems: Review of systems from her July 2018 [facility] swing bed stay were reviewed and revised as below. Gen.: Her weight increased from 89.2 kg on 10/12/2016 to 108.409 kg on previous swing bed admission but has decreased to 87.203 kg now. Cardiovascular: She has history of hypertension. She reports a heart cath at [facility] approximately 18 months ago without further intervention recommended. She denies heart failure DVT or pulmonary embolus Respiratory: She is a lifelong nonsmoker but states she has a diagnosis of asthma. She does not use home oxygen. GI: She has had cholecystectomy. She has had GI bleed in the past but does not recall details. She states had a colonoscopy approximately 20 years ago and had polypectomy. She has not had repeat colonoscopy. She was diagnosed with liver cirrhosis uncertain etiology approximately 2015. 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 She denies large distribution strokes or seizures. Endocrine: She was diagnosed with DM 2 approximately 2011. She has hyperlipidemia but denies thyroid disease Hematology/oncology: She denies internal malignancies. She had anemia and transient thrombocytopenia during her July 2018 [facility] stay which resolved. Psychiatric: She has anxiety and depression. She is uncertain if she has been told she has bipolar disorder. [place] skeletal: She has had ACL tear in her right knee which causes pain on walking. She had recent L1 compression fracture. She denies gout or other bone joint or muscle disorders. - Constitutional Vitals: Temp Pulse Resp BP Pulse Ox 98.4 F 85 18 141/80 96 08/13/18 07:05 08/13/18 07:05 08/13/18 07:05 08/13/18 07:05 08/13/18 07:05 Exam: Gen.: She is a well-developed overweight female resting comfortably in bed who appears in no severe distress HEENT: Head is atraumatic and normal cephalic. Eyes: EOMI. There is no scleral icterus. Mouth: Mucosa is dry Neck: There is no thyromegaly or adenopathy noted. Heart: Regular without murmurs gallops or ectopics Lungs: No wheezes or crackles are heard. Abdomen: Soft and minimally tender to palpation. No masses or guarding are noted. Extremities: There is no cyanosis edema or clubbing noted. Dorsalis pedis and posterior tibial pulses are trace palpable bilaterally. Neurologic: Mental status: She is lethargic but arouses easily and appears to be a good historian. Cranial nerves: Smile is symmetric. Forehead wrinkles bilaterally. Tongue protrudes midline. EOMI. Motor: There is no pronator drift. Cerebellar: Finger to nose is intact bilaterally. Skin: Warm and dry Internal Med - H&P Results - Labs CBC & Chem 7: 08/13/18 05:29 08/13/18 05:29 Labs: Short CBC 08/13/18 Range/Units 05:29 WBC 7.9 (4.3-11.1) K/mcL Hgb 12.2 (11.5-15.4) g/dL Hct 37.9 (35.3-44.9) % Plt Count 164 (140-400) K/mcL Neutrophils # 4.8 (1.6-8.9) K/mcL BMP 08/13/18 05:29 Sodium 135 L Potassium 3.1 L Chloride 100 Carbon Dioxide 27 BUN 11 Creatinine 0.73 Glucose 130 H Calcium 9.0
[2018-08-13] MEDS: Fluticasone Propionate Nasal 50 MCG/SPRAY BOTTLE NS SCH (12:20)
[2018-08-13] MEDS ORDERED: Acetaminophen 325 MG TABLET PO SCH (12:22)
[2018-08-13] MEDS: Nystatin POWDER 30 GM BOTTLE TP SCH ×2 (12:29→19:53)
[2018-08-13] MEDS: *HR* LORazepam 0.5 MG TABLET PO SCH (19:51)
[2018-08-13] MEDS: Insulin DETEMIR 100 UNIT/ML X5UNITS SQ SCH (19:51)
[2018-08-13] MEDS: Lactobacillus 1 EACH CAP.SPRINK PO SCH (19:51)
[2018-08-14] MEDS: traMADol 50 MG TABLET PO PRN ×3 (05:19→20:13)
[2018-08-14 05:55] LABS: Alanine Aminotransferase 25 Units/L (7-52); Albumin 2.9 g/dL (3.5-5.7); Albumin/Globulin Ratio 0.6 (1.1-2.2); Alkaline Phosphatase 222 Units/L (34-104); Aspartate Amino Transferase 48 Units/L (13-39); BUN/Creatinine Ratio 17 (6-26); Bilirubin,Total 0.8 mg/dL (0.3-1.0); Blood Urea Nitrogen 13 mg/dL (8-23); Calcium 9.2 mg/dL (8.6-10.3); Carbon Dioxide 28 mEq/L (23-29); Chloride 102 mEq/L (98-107); Globulin 4.7 g/dL (2.4-3.5); Glucose 115 mg/dL (70-105); Magnesium 1.8 mg/dL (1.6-2.6); Osmolality,Calculated 285 (280-300); Potassium 3.8 mEq/L (3.5-5.1); Sodium 137 mEq/L (136-145); Total Protein 7.6 g/dL (6.4-8.9); eGFR For Non-African Americans > 60 (> 60)
[2018-08-14] MEDS: ARIPiprazole 2 MG TABLET PO SCH (08:28)
[2018-08-14] MEDS: Lactobacillus 1 EACH CAP.SPRINK PO SCH ×2 (08:28→20:09)
[2018-08-14] MEDS: Multivit/Ca/Min/Fe/FA 1 TAB TABLET PO SCH (08:29)
[2018-08-14] MEDS: Metoprolol XL (24 HR) Succ 25 MG TAB.ER.24H PO SCH (08:29)
[2018-08-14] MEDS: Fluconazole 100 MG TABLET PO SCH (08:30)
[2018-08-14] MEDS: *HR* LORazepam 0.5 MG TABLET PO SCH ×2 (08:31→20:09)
[2018-08-14] MEDS: levoFLOXacin 500 MG TABLET PO SCH (08:31)
[2018-08-14] MEDS: Nystatin POWDER 30 GM BOTTLE TP SCH ×2 (08:32→20:13)
[2018-08-14] MEDS: Methyl Salicylate/Menthol 28 GM TUBE TP SCH (08:32)
[2018-08-14] MEDS: Fluticasone Propionate Nasal 50 MCG/SPRAY BOTTLE NS SCH (08:43)
--- NOTE | 2018-08-14 12:29 | Internal Med Progress Note ---
Date of Encounter: 08/14/18 Time of Encounter: 12:15 - Assessment and plan (1) UTI (urinary tract infection) Current Visit: No Status: Acute Assessment and plan: August 14. Continue Levaquin and lactobacillus through August 22. Qualifiers: Urinary tract infection type: site unspecified Hematuria presence: with hematuria Qualified Code(s): N39.0 - Urinary tract infection, site not specified; R31.9 - Hematuria, unspecified (2) Hypokalemia Current Visit: No Status: Acute Assessment and plan: August 14. Continue lower dose Bumex, supplemental potassium, and monitoring labs. (3) Anxiety and depression Current Visit: No Status: Chronic Assessment and plan: August 14. Continue higher dose Cymbalta. (4) Hypertension Current Visit: No Status: Chronic Assessment and plan: August 14. Continue Toprol-XL. Qualifiers: Hypertension type: essential hypertension Qualified Code(s): I10 - Ess ential (primary) hypertension (5) Cirrhosis Current Visit: No Status: Chronic Assessment and plan: August 14. Continue to monitor. Qualifiers: Hepatic cirrhosis type: unspecified hepatic cirrhosis Ascites presence: without ascites Qualified Code(s): K74.60 - Unspecified cirrhosis of liver (6) Hypomagnesemia Current Visit: No Status: Acute Assessment and plan: August 14. Magnesium level normal at 1.8. (7) Compression fracture of L1 lumbar vertebra Current Visit: No Status: Acute Assessment and plan: August 14. I explained in detail the importance of wearing the TLSO to decrease pain. Continue BenGay with Lidoderm patch. She did not want to use Tylenol because of cirrhosis. Qualifiers: Encounter type: initial encounter Fracture type: closed Qualified Code(s): S32.010A - Wedge compression fracture of first lumbar vertebra, initial encounter for closed fracture (8) Lethargy Current Visit: Yes Status: Acute Assessment and plan: August 14. Improved on reduced Ativan. (9) Diabetes Current Visit: No Status: Chronic Assessment and plan: August 14. Hemoglobin A1c was 8.4% on 07/26/2018. Continue Lantus/Levemir and Accu-Cheks with SSI. Qualifiers: Diabetes mellitus type: type 2 Diabetes mellitus jail insulin use: without jail use Diabetes mellitus complication status: with unspecified complications Qualified Code(s): E11.8 - Type 2 diabetes mellitus with unspecified complications - Subjective Interval history: August 14. She has no new complaints - Constitutional Vitals: Temp Pulse Resp BP Pulse Ox 98.4 F 92 16 121/77 95 08/14/18 07:38 08/14/18 07:38 08/14/18 07:38 08/14/18 07:38 08/14/18 07:38 Exam: She is lying in bed and appears in no acute distress. Her affect is overall cheerful. She is more awake and alert than yesterday. I reviewed her med ications and lab results. Internal Medicine: Result - Labs CBC & Chem 7: 08/13/18 05:29 08/14/18 05:09 Labs: BMP 08/14/18 05:09 Sodium 137 Potassium 3.8 Chloride 102 Carbon Dioxide 28 BUN 13 Creatinine 0.77 Glucose 115 H Calcium 9.2 Liver Function 08/14/18 Range/Units 05:09 Total Bilirubin 0.8 (0.3-1.0) mg/dL AST 48 H (13-39) Units/L ALT 25 (7-52) Units/L Alkaline Phosphatase 222 H (34-104) Units/L Albumin 2.9 L (3.5-5.7) g/dL Consult Discharge Plan - Plan Referrals: NONE,PCP [Primary Care Provider] - 1 week
[2018-08-14] MEDS: Insulin DETEMIR 100 UNIT/ML X5UNITS SQ SCH (20:09)
[2018-08-15] MEDS: traMADol 50 MG TABLET PO PRN ×2 (02:59→11:28)
[2018-08-15] MEDS: Multivit/Ca/Min/Fe/FA 1 TAB TABLET PO SCH (08:38)
[2018-08-15] MEDS: Bumetanide 1 MG TABLET PO SCH (08:39)
[2018-08-15] MEDS: levoFLOXacin 500 MG TABLET PO SCH (08:39)
[2018-08-15] MEDS: Lactobacillus 1 EACH CAP.SPRINK PO SCH ×2 (08:40→20:12)
[2018-08-15] MEDS: *HR* LORazepam 0.5 MG TABLET PO SCH ×2 (08:40→20:12)
[2018-08-15] MEDS: Fluconazole 100 MG TABLET PO SCH (08:41)
[2018-08-15] MEDS: ARIPiprazole 2 MG TABLET PO SCH (08:42)
[2018-08-15] MEDS: Metoprolol XL (24 HR) Succ 25 MG TAB.ER.24H PO SCH (08:43)
[2018-08-15] MEDS: Fluticasone Propionate Nasal 50 MCG/SPRAY BOTTLE NS SCH (08:44)
[2018-08-15] MEDS: Nystatin POWDER 30 GM BOTTLE TP SCH ×2 (08:44→20:14)
[2018-08-15] MEDS: Methyl Salicylate/Menthol 28 GM TUBE TP SCH (08:54)
[2018-08-15] MEDS ORDERED: traMADol 50 MG TABLET PO ONE (12:44)
[2018-08-15] MEDS: traMADol 50 MG TABLET PO SCH ×2 (15:23→20:11)
[2018-08-15] MEDS: Insulin DETEMIR 100 UNIT/ML X5UNITS SQ SCH (20:13)
[2018-08-16] MEDS: traMADol 50 MG TABLET PO SCH ×6 (00:38→20:22)
[2018-08-16] MEDS: Fluticasone Propionate Nasal 50 MCG/SPRAY BOTTLE NS SCH (08:16)
[2018-08-16] MEDS: levoFLOXacin 500 MG TABLET PO SCH (08:17)
[2018-08-16] MEDS: ARIPiprazole 2 MG TABLET PO SCH (08:17)
[2018-08-16] MEDS: Methyl Salicylate/Menthol 28 GM TUBE TP SCH (08:17)
[2018-08-16] MEDS: Lactobacillus 1 EACH CAP.SPRINK PO SCH ×2 (08:17→20:18)
[2018-08-16] MEDS: Metoprolol XL (24 HR) Succ 25 MG TAB.ER.24H PO SCH (08:18)
[2018-08-16] MEDS: *HR* LORazepam 0.5 MG TABLET PO SCH ×2 (08:18→20:19)
[2018-08-16] MEDS: Multivit/Ca/Min/Fe/FA 1 TAB TABLET PO SCH (08:18)
[2018-08-16] MEDS: Fluconazole 100 MG TABLET PO SCH (08:18)
[2018-08-16] MEDS: Nystatin POWDER 30 GM BOTTLE TP SCH ×2 (08:20→20:25)
[2018-08-16] MEDS: Insulin DETEMIR 100 UNIT/ML X5UNITS SQ SCH (20:19)
[2018-08-17] MEDS: traMADol 50 MG TABLET PO SCH ×4 (05:18→12:36)
[2018-08-17] MEDS: Fluticasone Propionate Nasal 50 MCG/SPRAY BOTTLE NS SCH (09:18)
[2018-08-17] MEDS: *HR* LORazepam 0.5 MG TABLET PO SCH ×2 (09:19→20:38)
[2018-08-17] MEDS: Fluconazole 100 MG TABLET PO SCH (09:19)
[2018-08-17] MEDS: Bumetanide 1 MG TABLET PO SCH (09:21)
[2018-08-17] MEDS: ARIPiprazole 2 MG TABLET PO SCH (09:21)
[2018-08-17] MEDS: Multivit/Ca/Min/Fe/FA 1 TAB TABLET PO SCH (09:22)
[2018-08-17] MEDS: levoFLOXacin 500 MG TABLET PO SCH (09:22)
[2018-08-17] MEDS: Metoprolol XL (24 HR) Succ 25 MG TAB.ER.24H PO SCH (09:23)
[2018-08-17] MEDS: Lactobacillus 1 EACH CAP.SPRINK PO SCH ×2 (09:23→20:37)
[2018-08-17] MEDS: Nystatin POWDER 30 GM BOTTLE TP SCH ×2 (09:25→20:38)
[2018-08-17] MEDS: Methyl Salicylate/Menthol 28 GM TUBE TP SCH (09:25)
--- NOTE | 2018-08-17 14:47 | Internal Med Progress Note ---
Date of Encounter: 08/17/18 Time of Encounter: 14:35 - Assessment and plan (1) UTI (urinary tract infection) Current Visit: No Status: Acute Assessment and plan: August 14. Continue Levaquin and lactobacillus through August 22. August 17. Will draw blood cultures since temperature is 101.4 at present. Continue Levaquin and lactobacillus. Qualifiers: Urinary tract infection type: site unspecified Hematuria presence: with hematuria Qualified Code(s): N39.0 - Urinary tract infection, site not specified; R31.9 - Hematuria, unspecified (2) Hypokalemia Current Visit: No Status: Acute Assessment and plan: August 14. Continue lower dose Bumex, supplemental potassium, and monitoring labs. August 17. Recheck labs (3) Anxiety and depression Current Visit: No Status: Chronic Assessment and plan: August 14. Continue higher dose Cymbalta. (4) Hypertension Current Visit: No Status: Chronic Assessment and plan: August 14. Continue Toprol-XL. Qualifiers: Hypertension type: essential hypertension Qualified Code(s): I10 - Essential (primary) hypertension (5) Cirrhosis Current Visit: No Status: Chronic Assessment and plan: August 14. Continue to monitor. August 17. Suspect hepatic encephalopathy. Check ammonia level. Start Xifaxan Qualifiers: Hepatic cirrhosis type: unspecified hepatic cirrhosis Ascites presence: without ascites Qualified Code(s): K74.60 - Unspecified cirrhosis of liver (6) Hypomagnesemia Current Visit: No Status: Acute Assessment and plan: August 14. Magnesium level normal at 1.8. (7) Compression fracture of L1 lumbar vertebra Current Visit: No Status: Acute Assessment and plan: August 14. I explained in detail the importance of wearing the TLSO to decrease pain. Continue BenGay with Lidoderm patch. She did not want to use Tylenol because of cirrhosis. August 17. She is not wearing the TLSO. Continue BenGay with Lidoderm patch. Change Ultram to prn Qualifiers: Encounter type: initial encounter Fracture type: closed Qualified Code(s): S32.010A - Wedge compression fracture of first lumbar vertebra, initial encounter for closed fracture (8) Lethargy Current Visit: Yes Status: Acute Assessment and plan: August 14. Improved on reduced Ativan. (9) Diabetes Current Visit: No Status: Chronic Assessment and plan: August 14. Hemoglobin A1c was 8.4% on 07/26/2018. Continue Lantus/Levemir and Accu-Cheks with SSI. 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 - Subjective Interval history: August 14. She has no new complaints August 17. She has no new complaints. - Constitutional Vitals: Temp Pulse Resp BP Pulse Ox 101.4 F H 139 22 114/82 93 08/17/18 13:59 08/17/18 13:59 08/17/18 13:59 08/17/18 13:59 08/17/18 13:59 Exam: She is sitting in a chair at bedside and denies pain or dyspnea. Heart is tachycardic rate approximately 140/m. Lungs are clear. She is slightly confused in conversation with inaccurate word substitutions in sentences frequently. I reviewed her medications, vitals and lab results. Internal Medicine: Result - Labs CBC & Chem 7: 08/13/18 05:29 08/14/18 05:09 Consult Discharge Plan - Plan Referrals: NONE,PCP [Primary Care Provider] - 1 week
[2018-08-17 15:26] LABS: Basophils # 0.1 K/mcL (0.0-0.2); Basophils % 0.9 %; Eosinophils # 0.3 K/mcL (0.0-0.6); Eosinophils % 2.2 %; Hematocrit 44.8 % (35.3-44.9); Immature Granulocytes % 0.5 % (0-4); Lymphocytes % 24.6 %; Mean Corpuscular HGB Conc 33.5 g/dL (31.6-35.5); Mean Corpuscular Hemoglobin 31.7 pg (28.0-33.3); Mean Corpuscular Volume 94.7 fL (83.0-100.0); Mean Platelet Volume 9.2 fL (9.4-12.4); Monocytes # 1.4 K/mcL (0.0-1.3); Monocytes % 11.7 %; Neutrophils # 7.4 K/mcL (1.6-8.9); Platelet Count 282 K/mcL (140-400); Red Blood Count 4.73 M/mcL (3.82-4.97); Red Cell Distribution Width 17.2 % (11.5-14.5); Segmented Neutrophils % 60.1 %
[2018-08-17 15:41] LABS: Calcium 10.1 mg/dL (8.6-10.3); Potassium 5.2 mEq/L (3.5-5.1)
[2018-08-17] MEDS: traMADol 50 MG TABLET PO PRN (20:37)
[2018-08-17] MEDS: Insulin DETEMIR 100 UNIT/ML X5UNITS SQ SCH (20:38)
[2018-08-18 05:53] LABS: Basophils # 0.1 K/mcL (0.0-0.2); Basophils % 0.8 %; Eosinophils # 0.6 K/mcL (0.0-0.6); Hematocrit 43.1 % (35.3-44.9); Hemoglobin 14.1 g/dL (11.5-15.4); Immature Granulocytes % 0.4 % (0-4); Lymphocytes # 3.5 K/mcL (0.6-4.6); Lymphocytes % 25.1 %; Mean Corpuscular HGB Conc 32.7 g/dL (31.6-35.5); Mean Corpuscular Hemoglobin 31.1 pg (28.0-33.3); Mean Corpuscular Volume 95.1 fL (83.0-100.0); Mean Platelet Volume 9.2 fL (9.4-12.4); Monocytes # 1.7 K/mcL (0.0-1.3); Monocytes % 12.5 %; Neutrophils # 7.9 K/mcL (1.6-8.9); Platelet Count 234 K/mcL (140-400); Red Blood Count 4.53 M/mcL (3.82-4.97); Segmented Neutrophils % 57.2 %
[2018-08-18 06:10] LABS: Calcium 9.9 mg/dL (8.6-10.3); Potassium 4.6 mEq/L (3.5-5.1)
[2018-08-18] MEDS: levoFLOXacin 500 MG TABLET PO SCH (08:10)
[2018-08-18] MEDS: Multivit/Ca/Min/Fe/FA 1 TAB TABLET PO SCH (08:11)
[2018-08-18] MEDS: ARIPiprazole 2 MG TABLET PO SCH (08:12)
[2018-08-18] MEDS: Metoprolol XL (24 HR) Succ 25 MG TAB.ER.24H PO SCH (08:12)
[2018-08-18] MEDS: Fluconazole 100 MG TABLET PO SCH (08:12)
[2018-08-18] MEDS: Lactobacillus 1 EACH CAP.SPRINK PO SCH ×2 (08:13→20:25)
[2018-08-18] MEDS: *HR* LORazepam 0.5 MG TABLET PO SCH ×2 (08:13→20:25)
[2018-08-18] MEDS: Methyl Salicylate/Menthol 28 GM TUBE TP SCH ×2 (09:16→12:43)
[2018-08-18] MEDS: Fluticasone Propionate Nasal 50 MCG/SPRAY BOTTLE NS SCH (09:16)
[2018-08-18] MEDS: Nystatin POWDER 30 GM BOTTLE TP SCH ×2 (09:17→20:38)
[2018-08-18] MEDS: traMADol 50 MG TABLET PO PRN ×2 (11:38→15:34)
--- NOTE | 2018-08-18 11:39 | Internal Med Progress Note ---
Date of Encounter: 08/18/18 Time of Encounter: 11:30 - Assessment and plan (1) UTI (urinary tract infection) Current Visit: No Status: Acute Assessment and plan: August 14. Continue Levaquin and lactobacillus through August 22. August 17. Will draw blood cultures since temperature is 101.4 at present. Continue Levaquin and lactobacillus. August 18. Temperature normalized. Continue Levaquin, lactobacillus, and A ugmentin. Qualifiers: Urinary tract infection type: site unspecified Hematuria presence: with hematuria Qualified Code(s): N39.0 - Urinary tract infection, site not specified; R31.9 - Hematuria, unspecified (2) Hypokalemia Current Visit: No Status: Acute Assessment and plan: August 14. Continue lower dose Bumex, supplemental potassium, and monitoring labs. August 17. Recheck labs August 18. Potassium level decreased today to 4.6 from 5.2 yesterday. Continue present regimen. (3) Anxiety and depression Current Visit: No Status: Chronic Assessment and plan: August 14. Continue higher dose Cymbalta. (4) Hypertension Current Visit: No Status: Chronic Assessment and plan: August 14. Continue Toprol-XL. Qualifiers: Hypertension type: essential hypertension Qualified Code(s): I10 - Essential (primary) hypertension (5) Cirrhosis Current Visit: No Status: Chronic Assessment and plan: August 14. Continue to monitor. August 17. Suspect hepatic encephalopathy. Check ammonia level. Start Xifaxan August 18. Ammonia level was 56 yesterday. Continue Xifaxan Qualifiers: Hepatic cirrhosis type: unspecified hepatic cirrhosis Ascites presence: without ascites Qualified Code(s): K74.60 - Unspecified cirrhosis of liver (6) Hypomagnesemia Current Visit: No Status: Acute Assessment and plan: August 14. Magnesium level normal at 1.8. (7) Compression fracture of L1 lumbar vertebra Current Visit: No Status: Acute Assessment and plan: August 14. I explained in detail the importance of wearing the TLSO to decrease pain. Continue BenGay with Lidoderm patch. She did not want to use Tylenol because of cirrhosis. August 17. She is not wearing the TLSO. Continue BenGay with Lidoderm patch. Change Ultram to prn August 18. I discussed with the daughters in the presence of the patient her lack of compliance with TLSO device. Continue BenGay with Lidoderm and use Ultram prn. Qualifiers: Encounter type: initial encounter Fracture type: closed Qualified Code(s): S32.010A - Wedge compression fracture of first lumbar vertebra, initial encounter for closed fracture (8) Lethargy Current Visit: Yes Status: Acute Assessment and plan: August 14. Improved on reduced Ativan. August 18. Lethargy has lessened but confusion persists. Decrease Ativan dose to 0.25 mg twice a day. (9) Diabetes Current Visit: No Status: Chronic Assessment and plan: August 14. Hemoglobin A1c was 8.4% on 07/26/2018. Continue Lantus/Levemir and Accu-Cheks with SSI. Qualifiers: Diabetes mellitus type: type 2 Diabetes mellitus retirement insulin use: without retirement use Diabetes mellitus complication status: with unspecified complications Qualified Code(s): E11.8 - Type 2 diabetes mellitus with unspecified complications (10) Tachycardia Current Visit: Yes Status: Acute Assessment and plan: August 17. Order 12-lead EKG. August 18. Improved. Continue Toprol-XL. (11) BHARATH (acute kidney injury) Current Visit: No Status: Acute Assessment and plan: August 18. BUN and creatinine have risen to 25 and 1.37 respectively. Discontinue Bumex. BN peptide normal at 28. - Subjective Interval history: August 14. She has no new complaints August 17. She has no new complaints. August 18. She has no new complaints. She spiked fever and developed tachycardia yesterday with lethargy. Blood cultures were drawn with results pending. Oral Levaquin was continued and Augmentin was added. - Constitutional Vitals: Temp Pulse Resp BP Pulse Ox 98.1 F 104 15 98/69 95 08/18/18 07:16 08/18/18 07:16 08/18/18 07:16 08/18/18 07:16 08/18/18 07:16 Exam: She is resting currently in bed and appears in no acute distress. Her affect is cheerful. She is pleasant but rambling in conversation. I reviewed her medications and lab results. I had a long discussion with her daughters about her lack of participation in therapy and noncompliance with use of TLSO device. They admitted she looks clinically improved today compared to yesterday but are uncertain if they can care for her in the home environment with anticipated discharge later this week. Internal Medicine: Result - Labs CBC & Chem 7: 08/18/18 05:25 08/18/18 05:25 Labs: Short CBC 08/17/18 08/18/18 Range/Units 15:10 05:25 WBC 12.3 H D 13.8 H (4.3-11.1) K/mcL Hgb 15.0 D 14.1 (11.5-15.4) g/dL Hct 44.8 43.1 (35.3-44.9) % Plt Count 282 D 234 (140-400) K/mcL Neutrophils # 7.4 7.9 (1.6-8.9) K/mcL BMP 08/17/18 08/18/18 15:10 05:25 Sodium 134 L 136 Potassium 5.2 H 4.6 Chloride 99 97 L Carbon Dioxide 26 31 H BUN 21 25 H Creatinine 1.23 H 1.37 H Glucose 182 H 148 H Calcium 10.1 9.9 Consult Discharge Plan - Plan Referrals: NONE,PCP [Primary Care Provider] - 1 week
--- NOTE | 2018-08-18 15:31 | Electrocardiograph Report ---
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
[2018-08-18] MEDS: Insulin DETEMIR 100 UNIT/ML X5UNITS SQ SCH (20:25)
[2018-08-19] MEDS: *HR* LORazepam 0.5 MG TABLET PO SCH ×2 (08:09→21:16)
[2018-08-19] MEDS: Metoprolol XL (24 HR) Succ 25 MG TAB.ER.24H PO SCH (08:09)
[2018-08-19] MEDS: Fluconazole 100 MG TABLET PO SCH (08:09)
[2018-08-19] MEDS: Lactobacillus 1 EACH CAP.SPRINK PO SCH ×2 (08:10→21:16)
[2018-08-19] MEDS: levoFLOXacin 500 MG TABLET PO SCH (08:10)
[2018-08-19] MEDS: ARIPiprazole 2 MG TABLET PO SCH (08:10)
[2018-08-19] MEDS: traMADol 50 MG TABLET PO PRN ×3 (08:10→21:16)
[2018-08-19] MEDS: Multivit/Ca/Min/Fe/FA 1 TAB TABLET PO SCH (08:10)
[2018-08-19] MEDS: Fluticasone Propionate Nasal 50 MCG/SPRAY BOTTLE NS SCH (12:17)
[2018-08-19] MEDS: Methyl Salicylate/Menthol 28 GM TUBE TP SCH (12:27)
[2018-08-19] MEDS: Nystatin POWDER 30 GM BOTTLE TP SCH ×2 (12:28→21:17)
[2018-08-19] MEDS: Insulin DETEMIR 100 UNIT/ML X5UNITS SQ SCH (21:17)
[2018-08-20] MEDS: traMADol 50 MG TABLET PO PRN ×3 (02:24→20:41)
[2018-08-20 04:45] LABS: Basophils # 0.1 K/mcL (0.0-0.2); Basophils % 0.8 %; Eosinophils # 0.7 K/mcL (0.0-0.6); Eosinophils % 5.8 %; Hematocrit 40.8 % (35.3-44.9); Hemoglobin 13.2 g/dL (11.5-15.4); Immature Granulocytes % 0.4 % (0-4); Lymphocytes # 2.3 K/mcL (0.6-4.6); Lymphocytes % 19.9 %; Mean Corpuscular HGB Conc 32.4 g/dL (31.6-35.5); Mean Corpuscular Hemoglobin 31.1 pg (28.0-33.3); Mean Platelet Volume 9.4 fL (9.4-12.4); Monocytes # 1.4 K/mcL (0.0-1.3); Monocytes % 12.4 %; Neutrophils # 6.9 K/mcL (1.6-8.9); Platelet Count 226 K/mcL (140-400); Red Blood Count 4.25 M/mcL (3.82-4.97); Red Cell Distribution Width 16.9 % (11.5-14.5); Segmented Neutrophils % 60.7 %
[2018-08-20 05:09] LABS: Calcium 9.6 mg/dL (8.6-10.3); Potassium 4.4 mEq/L (3.5-5.1)
[2018-08-20] MEDS: Lactobacillus 1 EACH CAP.SPRINK PO SCH ×2 (10:16→20:40)
[2018-08-20] MEDS: Multivit/Ca/Min/Fe/FA 1 TAB TABLET PO SCH (10:16)
[2018-08-20] MEDS: ARIPiprazole 2 MG TABLET PO SCH (10:17)
[2018-08-20] MEDS: Fluconazole 100 MG TABLET PO SCH (10:17)
[2018-08-20] MEDS: *HR* LORazepam 0.5 MG TABLET PO SCH (10:17)
[2018-08-20] MEDS: levoFLOXacin 500 MG TABLET PO SCH (10:18)
[2018-08-20] MEDS: Metoprolol XL (24 HR) Succ 25 MG TAB.ER.24H PO SCH (10:22)
[2018-08-20] MEDS: Nystatin POWDER 30 GM BOTTLE TP SCH ×2 (10:25→20:50)
[2018-08-20] MEDS: Methyl Salicylate/Menthol 28 GM TUBE TP SCH (10:30)
[2018-08-20] MEDS: Fluticasone Propionate Nasal 50 MCG/SPRAY BOTTLE NS SCH (10:31)
--- NOTE | 2018-08-20 11:31 | Internal Med Progress Note ---
Date of Encounter: 08/20/18 Time of Encounter: 11:20 - Assessment and plan (1) UTI (urinary tract infection) Current Visit: No Status: Acute Assessment and plan: August 14. Continue Levaquin and lactobacillus through August 22. August 17. Will draw blood cultures since temperature is 101.4 at present. Continue Levaquin and lactobacillus. August 18. Temperature normalized. Continue Levaquin, lactobacillus, and A ugmentin. August 20. Temperature remains normal. Discontinue Augmentin at discharge tomorrow. Qualifiers: Urinary tract infection type: site unspecified Hematuria presence: with hematuria Qualified Code(s): N39.0 - Urinary tract infection, site not specified; R31.9 - Hematuria, unspecified (2) Hypokalemia Current Visit: No Status: Acute Assessment and plan: August 14. Continue lower dose Bumex, supplemental potassium, and monitoring labs. August 17. Recheck labs August 18. Potassium level decreased today to 4.6 from 5.2 yesterday. Continue present regimen. (3) Anxiety and depression Current Visit: No Status: Chronic Assessment and plan: August 14. Continue higher dose Cymbalta. (4) Hypertension Current Visit: No Status: Chronic Assessment and plan: August 14. Continue Toprol-XL. Qualifiers: Hypertension type: essential hypertension Qualified Code(s): I10 - Essential (primary) hypertension (5) Cirrhosis Current Visit: No Status: Chronic Assessment and plan: August 14. Continue to monitor. August 17. Suspect hepatic encephalopathy. Check ammonia level. Start Xifaxan August 18. Ammonia level was 56 yesterday. Continue Xifaxan August 20. Ammonia level decreased to 40. Continue present dose Xifaxan but changed to 550 mg twice a day at discharge. Qualifiers: Hepatic cirrhosis type: unspecified hepatic cirrhosis Ascites presence: without ascites Qualified Code(s): K74.60 - Unspecified cirrhosis of liver (6) Hypomagnesemia Current Visit: No Status: Acute Assessment and plan: August 14. Magnesium level normal at 1.8. (7) Compression fracture of L1 lumbar vertebra Current Visit: No Status: Acute Assessment and plan: August 14. I explained in detail the importance of wearing the TLSO to decrease pain. Continue BenGay with Lidoderm patch. She did not want to use Tylenol because of cirrhosis. August 17. She is not wearing the TLSO. Continue BenGay with Lidoderm patch. Change Ultram to prn August 18. I discussed with the daughters in the presence of the patient her lack of compliance with TLSO device. Continue BenGay with Lidoderm and use Ultram prn. August 20. She is not wearing her TLSO brace. Continue BenGay and Lidoderm. Qualifiers: Encounter type: initial encounter Fracture type: closed Qualified Code(s): S32.010A - Wedge compression fracture of first lumbar vertebra, initial encounter for closed fracture (8) Lethargy Current Visit: Yes Status: Acute Assessment and plan: August 14. Improved on reduced Ativan. August 18. Lethargy has lessened but confusion persists. Decrease Ativan dose to 0.25 mg twice a day. August 20. Lethargy appears further decreased but confusion persists. Order MMSE. (9) Diabetes Current Visit: No Status: Chronic Assessment and plan: August 14. Hemoglobin A1c was 8.4% on 07/26/2018. Continue Lantus/Levemir and Accu-Cheks with SSI. 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 Order 12-lead EKG. August 18. Improved. Continue Toprol-XL. (11) BHARATH (acute kidney injury) Current Visit: No Status: Acute Assessment and plan: August 18. BUN and creatinine have risen to 25 and 1.37 respectively. Discontinue Bumex. BN peptide normal at 28. August 20. Creatinine improved to1.25. Continue present management. - Subjective Interval history: August 14. She has no new complaints August 17. She has no new complaints. August 18. She has no new complaints. She spiked fever and developed tachycardia yesterday with lethargy. Blood cultures were drawn with results pending. Oral Levaquin was continued and Augmentin was added. August 20. She has no new complaints. She states she has low back pain but denies other pain and denies dyspnea. - Constitutional Vitals: Temp Pulse Resp BP Pulse Ox 98.3 F 99 18 105/68 97 08/20/18 07:09 08/20/18 07:09 08/20/18 07:09 08/20/18 07:09 08/20/18 07:09 Exam: She is sitting in a chair at bedside and appears in no acute distress. She is pleasant and somewhat talkative but rambling in conversation. She had difficulty stating her age and did not know her present location or my name. I reviewed her medications and lab results. Internal Medicine: Result - Labs CBC & Chem 7: 08/20/18 04:35 08/20/18 04:35 Labs: Short CBC 08/20/18 Range/Units 04:35 WBC 11.3 H (4.3-11.1) K/mcL Hgb 13.2 (11.5-15.4) g/dL Hct 40.8 (35.3-44.9) % Plt Count 226 (140-400) K/mcL Neutrophils # 6.9 (1.6-8.9) K/mcL BMP 08/20/18 04:35 Sodium 133 L Potassium 4.4 Chloride 99 Carbon Dioxide 28 BUN 27 H Creatinine 1.25 H Glucose 82 Calcium 9.6 Consult Discharge Plan - Plan Referrals: NONE,PCP [Primary Care Provider] - 1 week
[2018-08-20] MEDS: *HR* LORazepam 0.5 MG TABLET PO PRN (16:09)
[2018-08-20] MEDS: Insulin DETEMIR 100 UNIT/ML X5UNITS SQ SCH (20:41)
[2018-08-21] MEDS: *HR* LORazepam 0.5 MG TABLET PO PRN ×2 (00:10→13:51)
[2018-08-21 07:22] VITALS: BP 104/63
[2018-08-21] MEDS: levoFLOXacin 500 MG TABLET PO SCH (08:11)
[2018-08-21] MEDS: Fluconazole 100 MG TABLET PO SCH (08:11)
[2018-08-21] MEDS: Multivit/Ca/Min/Fe/FA 1 TAB TABLET PO SCH (08:11)
[2018-08-21] MEDS: Metoprolol XL (24 HR) Succ 25 MG TAB.ER.24H PO SCH (08:12)
[2018-08-21] MEDS: ARIPiprazole 2 MG TABLET PO SCH (08:13)
[2018-08-21] MEDS: Lactobacillus 1 EACH CAP.SPRINK PO SCH (08:13)
[2018-08-21] MEDS: traMADol 50 MG TABLET PO PRN ×2 (08:15→13:50)
--- NOTE | 2018-08-21 09:22 | Discharge Summary ---
Orders not resulted at time of discharge: Pending orders 08/17/18 15:05 Culture,Blood [BC] Stat Date of Encounter: 08/21/18 Time of Encounter: 09:15 - Discharge Diagnosis (1) UTI (urinary tract infection) Priority: Primary Status: Acute Qualifiers: Urinary tract infection type: site unspecified Hematuria presence: with hematuria Qualified Code(s): N39.0 - Urinary tract infection, site not specified; R31.9 - Hematuria, unspecified (2) Hypokalemia Priority: Secondary Status: Acute (3) Anxiety and depression Priority: Secondary Status: Chronic (4) Hypertension Priority: Secondary Status: Chronic Qualifiers: Hypertension type: essential hypertension Qualified Code(s): I10 - Essential (primary) hypertension (5) Cirrhosis Priority: Secondary Status: Chronic Qualifiers: Hepatic cirrhosis type: unspecified hepatic cirrhosis Ascites presence: without ascites Qualified Code(s): K74.60 - Unspecified cirrhosis of liver (6) Hypomagnesemia Priority: Secondary Status: Acute (7) Compression fracture of L1 lumbar vertebra Priority: Secondary Status: Acute Qualifiers: Encounter type: initial encounter Fracture type: closed Qualified Code(s): S32.010A - Wedge compression fracture of first lumbar vertebra, initial encounter for closed fracture (8) Diabetes Priority: Secondary Status: Chronic Qualifiers: Diabetes mellitus type: type 2 Diabetes mellitus 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 insulin use: without fdc use Diabetes mellitus complication status: with unspecified complications Qualified Code(s): E11.8 - Type 2 diabetes mellitus with unspecified complications (9) Tachycardia Priority: Secondary Status: Acute (10) BHARATH (acute kidney injury) Priority: Secondary Status: Acute (11) Hepatic encephalopathy Priority: Secondary Status: Acute (12) Dementia Priority: Secondary Status: Acute Qualifiers: Dementia type: unspecified type Dementia behavioral disturbance: without behavioral disturbance Qualified Code(s): F03.90 - Unspecified dementia withou t behavioral disturbance Hospital course: Ms. Frank is a 63 year old female who was transferred to [facility] swing bed after [facility] hospitalization August 06 for UTI. 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 She transferred to [facility] swing bed for a July 24-August 02 stay. Following discharge home August 02 she became more confused and weak. She returned to [facility] and was found to have urosepsis with Pseudomonas cultured from urine. She was seen by orthopedist for L1 compression fracture and was recommended to have a TLSO brace. She was discharged to [facility] swing bed for ongoing care needs. Initial orders were written by the discharging physicians at [facility]. I saw her on August 13 and performed the swing bed history and physical. She continued on Levaquin and lactobacillus. She spiked a fever of 101.4 on August 17. Blood cultures were drawn and showed no growth at time of discharge. She was given Augmentin empirically in addition to Levaquin. Her fever resolved after 24 hours. She continued on Augmentin with Levaquin to the end of her swing bed stay but will not continue these upon discharge to the SNF. Her sedative medications were tapered off with little improvement in her mental alertness. MMSE exam showed a score of 3 out of 30. Ammonia level ludin to 56 and was started on Xifaxan with decrease to ammonia level of 40 by August 20. She will continue Xifaxan at the SNF. She appears to have significant underlying dementia and addition to encephalopathy. TSH and B12 levels were satisfactory. Supplemental potassium was given and Bumex was discontinued by time of discharge. Labs can be monitored at the SNF. She was noncompliant wearing the TLSO for L1 compression fracture. She did not appear to be in significant pain on day of discharge. Blood sugars remained adequately controlled on Lantus/Levemir dose of 10 units at bedtime. On August 21 arrangements were complete for her to be discharged to [facility] for ongoing care needs. - Time Spent with Patient Total time spent providing and/or coordinating discharge services: - Discharge Medications Prescriptions: Potassium Chloride 10 meq PO DAILY 365 Days tab.er.prt Rifaximin [Xifaxan] 550 mg PO BID 365 Days tablet Home Medications: Albuterol Sulfate [Ventolin Hfa] 1 - 2 puff IH Q4-6H PRN 10/10/16 [History] Ondansetron HCl [Zofran] 4 mg PO TID PRN 10/10/16 [History] ARIPiprazole [Abilify] 1 mg PO DAILY 07/11/18 [History] DULoxetine [Cymbalta] 20 mg PO DAILY 07/11/18 [History] Multivit/Ca/Min/Fe/FA [Thera M Plus] 1 tab PO DAILY tablet 07/24/18 [Rx] Nystatin POWDER [Nystop] 1 appl TP BID bottle 07/24/18 [Rx] Insulin Glargine [Lantus] 10 unit SQ HS #0 08/02/18 [Rx] Metoprolol XL (24 HR) Succ [Toprol Xl] 12.5 mg PO DAILY #15 tab.er.24h 08/02/18 [Rx] Potassium Chloride 10 meq PO DAILY 365 Days tab.er.prt 08/21/18 [Rx] Rifaximin [Xifaxan] 550 mg PO BID 365 Days tablet 08/21/18 [Rx] Allergies/Adverse Reactions: Allergy/AdvReac Type Severity Reaction Status Date / Time hydrocodone AdvReac Agitated Verified 08/06/18 12:01 hydroxyzine [From Vistaril] AdvReac Agitated Verified 08/06/18 12:01 Oxycodone [From Percocet] AdvReac Agitated Verified 08/06/18 12:01 Date of admission: 08/12/18 21:36 Primary care physician: PCP NONE Consults: 08/12/18 22:12 Consult to Occupational Therapy [CONS] Routine Comment: Assess, develop, and implement plan of care. Reason for Consult: Assess, develop, and implement plan of care. Does patient have active BEDREST order?: No Is patient medically & hemodynamically stable?: Yes Patient assessed for mobility or mobilized this visit?: No Consult to Physical Therapy [CONS] Routine Comment: Assess, develop, and implement plan of care. Reason for Consult: Assess, develop, and implement plan of care. Does patient have active BEDREST order?: No Is patient medically & hemodynamically stable?: Yes Patient assessed for mobility or mobilized this visit?: No Consult to French Teacher [CONS] Routine Reason for SW Consult: Swing bed admission, just discharged from [facility] a week ago. - Constitutional Vitals: Temp Pulse Resp BP Pulse Ox 98.3 F 94 16 104/63 99 08/21/18 07:11 08/21/18 07:11 08/21/18 07:11 08/21/18 07:11 08/21/18 07:11 - Patient Status Disposition: Transfer SNF - Discharge Instructions Follow Up With: NONE,PCP [Primary Care Provider] - 1 week - Diet and Activity Activity: as per physical therapy Diet: diabetic diet
--- NOTE | 2018-08-21 09:49 | Physician Discharge Referral ---
ExtendedCare Referral Info Transfer To: [facility] Provider in Charge: Roger Provider in Charge after Transfer: PCP - Diagnosis (1) UTI (urinary tract infection) Priority: Primary Status: Resolved (2) Hypokalemia Priority: Secondary Status: Acute (3) Anxiety and depression Priority: Secondary Status: Chronic (4) Hypertension Priority: Secondary Status: Chronic (5) Cirrhosis Priority: Secondary Status: Chronic (6) Hypomagnesemia Priority: Secondary Status: Resolved (7) Compression fracture of L1 lumbar vertebra Priority: Secondary Status: Acute (8) Diabetes Priority: Secondary Status: Chronic (9) Tachycardia Priority: Secondary Status: Acute (10) BHARATH (acute kidney injury) Priority: Secondary Status: Acute (11) Hepatic encephalopathy Priority: Secondary Status: Acute (12) Dementia Priority: Secondary Status: Acute Prognosis: Fair Aware of Diagnosis: Family Aware of Prognosis: Family - Transfer Medications Prescriptions: Potassium Chloride 10 meq PO DAILY 365 Days tab.er.prt Rifaximin [Xifaxan] 550 mg PO BID 365 Days tablet Home Medications: Albuterol Sulfate [Ventolin Hfa] 1 - 2 puff IH Q4-6H PRN 10/10/16 [History] Ondansetron HCl [Zofran] 4 mg PO TID PRN 10/10/16 [History] ARIPiprazole [Abilify] 1 mg PO DAILY 07/11/18 [History] DULoxetine [Cymbalta] 20 mg PO DAILY 07/11/18 [History] Multivit/Ca/Min/Fe/FA [Thera M Plus] 1 tab PO DAILY tablet 07/24/18 [Rx] Nystatin POWDER [Nystop] 1 appl TP BID bottle 07/24/18 [Rx] Insulin Glargine [Lantus] 10 unit SQ HS #0 08/02/18 [Rx] Metoprolol XL (24 HR) Succ [Toprol Xl] 12.5 mg PO DAILY #15 tab.er.24h 08/02/18 [Rx] Potassium Chloride 10 meq PO DAILY 365 Days tab.er.prt 08/21/18 [Rx] Rifaximin [Xifaxan] 550 mg PO BID 365 Days tablet 08/21/18 [Rx] Allergies/Adverse Reactions: Allergy/AdvReac Type Severity Reaction Status Date / Time hydrocodone AdvReac Agitated Verified 08/06/18 12:01 hydroxyzine [From Vistaril] AdvReac Agitated Verified 08/06/18 12:01 Oxycodone [From Percocet] AdvReac Agitated Verified 08/06/18 12:01 - Respiratory Orders Smoking Cessation: Smoking cessation has been advised. For more information, call the [place] Tobacco Quit Line at 8-848-OYQE-NOW. - Lab Orders Lab Orders: Other (include drug levels w/frequency) (CBC with differential, BMP, ammonia level, BN peptide in one week) - Mobility Orders Chair - Rehabiliation Orders Rehab Orders: Evaluation for Physical Therapy, Evaluation for Occupational Therapy - Diet Orders No Concentrated Sweets CERTIFICATION: I certify that the transfer of the above named patient to an Extended Care Facility is necessary for the continuing treatment of the diagnosis listed. The above information is true and accurate reflection of patient's current condition. Confidential - Redisclosure prohibited without a patient's written consent.
[2018-08-21] MEDS: Fluticasone Propionate Nasal 50 MCG/SPRAY BOTTLE NS SCH (09:58)
[2018-08-21] MEDS: Methyl Salicylate/Menthol 28 GM TUBE TP SCH (09:59)
[2018-08-21] MEDS: Nystatin POWDER 30 GM BOTTLE TP SCH (10:01)
== END 2018-08-21 15:30 | DRG 690 ==
LOC: INPPIK 21:36
PROVIDERS: ADMIT Internal Medicine; ATTEND Internal Medicine